=== PATIENT | female | born 1970 | race Caucasian/White ===

== ENCOUNTER 2017-02-08 23:17 | Emergency (ER) | payer OTHER ==
[~2017-02-08] VITALS: Ht 165.1 cm; Wt 119.7 kg
[~2017-02-08 23:17] MED LIST: AMB5 PO; ATV5 PO; CHOL100010 PO; LORA-741 PO; METF1000 PO; NRV5 PO; OMEG10007 PO; OMEP40CA36 PO
[2017-02-08 23:24] VITALS: TEMP 36.5; Ht 165.1 cm; Wt 119.7 kg
[2017-02-08] MEDS ORDERED: SODIUM CHLORIDE 0.9% 1000ML 1,000 ML IV STA ×2 (23:30)
[2017-02-08] MEDS ORDERED: DiphenhydrAMINE HCL 50 MG/ML VIAL IV STA (23:37)
[2017-02-08] MEDS ORDERED: METOCLOPRAMIDE HCL INJ 5 MG/ML 2 ML VIAL IV STA (23:37)
[2017-02-08] MEDS ORDERED: ACETAMINOPHEN 500 MG TAB PO STA (23:37)
[2017-02-08 23:57] LABS: BASO % 0.5 %; BASO ABS # 0.04 K/uL (0-0.2); COMPLETE YES; EOS % 6.5 %; HEMATOCRIT 34.9 % (37-47); IG% 0.3 %; LYMPH ABS # 2.51 K/uL (1.2-3.4); MEAN CELL VOLUME 77.4 fL (80-100); MEAN CORPUSCULAR HEMOGLOBIN 23.9 pg (25-34); MEAN CORPUSCULAR HGB CONC 30.9 g/dl (32-36); MEAN PLATELET VOLUME 10.2 fL (7.4-10.4); MONO % 7.7 %; PLATELET COUNT 313 K/uL (130-400); RED BLOOD COUNT 4.51 M/uL (4.2-5.4); WHITE BLOOD COUNT 7.38 K/uL (4.8-10.8)
[2017-02-09 00:03] LABS: URINE APPEARANCE CLEAR (CLEAR); URINE BILIRUBIN NEG (NEG); URINE COLOR YELLOW; URINE NITRITE NEG (NEG); URINE SPECIFIC GRAVITY 1.012 (1.000-1.030); UROBILINOGEN NEG (NEG); ZZUR CULT IF INDIC CLEAN CATCH NO
[2017-02-09 00:06] LABS: ISTAT CREATININE 0.8 mg/dl (0.6-1.3); ISTAT HEMOGLOBIN 11.9 g/dl (12.0-16.0); ISTAT IONIZED CALCIUM 1.17 mmol/l (1.12-1.32)
[2017-02-09 00:06] LABS: MANUAL MICROSCOPIC REQUIRED? NO; REVIEW REQ? NO
[2017-02-09 00:08] LABS: INR 0.9 (0.9-1.1); PARTIAL THROMBOPLASTIN RATIO 0.9; PROTHROMBIN TIME (PATIENT) 10.1 SECONDS (9.0-12.0)
[2017-02-09 00:14] VITALS: O2SAT 97
[2017-02-09 00:18] LABS: AST/SGOT 18 U/L (15-37); BLOOD UREA NITROGEN 11 mg/dl (7-18); BUN/CREATININE RATIO 13.4 (10-20); CALCIUM 8.8 mg/dl (8.5-10.1); CARBON DIOXIDE 28 mmol/L (21-32); CHLORIDE 105 mmol/L (98-107); GLUCOSE 159 mg/dl (70-99); MAGNESIUM 1.9 mg/dl (1.8-2.4); SODIUM 140 mmol/L (136-145)
[2017-02-09 00:22] LABS: PREG INTERNAL NEGATIVE QC NEG CLEAR BACKGROUND; PREG INTERNAL POSITIVE QC POS CONTROL LINE
[2017-02-09] MEDS ORDERED: PANT40TA PO (00:24)
[2017-02-09] MEDS ORDERED: CHOL1000 PO (00:25)
[2017-02-09 00:29] LABS: ALKALINE PHOSPHATASE 71 U/L (45-117); ALT/SGPT 36 U/L (12-78); CKMB/CK RATIO 0.9 (0-3.0)
[2017-02-09] MEDS ORDERED: DOXYCYCLINE HYCLATE 100 MG CAP PO ONE (01:45)
--- NOTE | 2017-02-09 02:45 | EMERGENCY ROOM VISIT NOTE ---
History First contact with patient: 23:27 Chief Complaint: ED VAG BLEEDING Stated Complaint: VAGINAL BLEEDING,TROUBLE BREATHING History of Present Illness The patient is a 46 year old female who presents to the Emergency Room with complaints of nausea, lightheadedness, dizziness, headache, heavy vaginal bleeding, fatigue and shortness of breath for the past several days that is steadily getting worse. Patient had her menstrual cycle for 3 weeks now[address] She sees Dr. Nuñez and Dr. Roe. She is not seen him in several months. She's had blood transfusions and iron transfusions in the past by Dr. Cardenas. Nothing recently. Patient denies chest pain, fever, chills, cough, congestion, back pain, urinary symptoms. Review of Systems See HPI for pertinent positives & negatives. A total of 10 systems reviewed and were otherwise negative. Past Medical/Surgical History Medical Problems: (1) Chest pain (2) Cholecystectomy (3) CHRONIC LIVER DIS NEC (4) Deliveries by (5) DIAB CRISTIAN WO COMPL, TYPE II OR UNSPEC TYPE, NOT UNCNTRLD (6) DIVERTICULOSIS COLON (W/O MENT OF HEMORRHAGE) (7) ESOPHAGEAL REFLUX (8) HX-VENOUS THROMBOSIS&EMBOLISM (9) HYPERTENSION NOS (10) IRON DEFIC ANEMIA NOS (11) Microcytic anemia (12) POLYCYSTIC OVARIES Social History Smoking Status: Never Smoker Alcohol Use: none Marital Status: Housing Status: lives with family Occupation Status: unemployed Current/Historical Medications Scheduled Cholecalciferol (Vitamin D3), 400 INTERUNIT PO DAILY Fish Oil (Star-3), 1 CAP PO DAILY Metformin Hcl (Glucophage), 1,000 MG PO BID Pantoprazole (Protonix), 40 MG PO DAILY Allergies Coded Allergies: Cinnamon (Verified Allergy, Mild, 02/09/17) Penicillins (Verified Allergy, Mild, Yeast infection, 02/09/17) Physical Exam Vital Signs Date Time Temp Pulse Resp B/P Pulse Ox O2 Delivery O2 Flow Rate FiO2 02/09/17 02:05 68 20 152/90 97 Room Air 02/09/17 00:14 70 16 163/111 99 Room Air 02/09/17 00:14 97 Room Air 02/09/17 00:10 79 02/08/17 23:50 95 Room Air 02/08/17 23:24 36.5 72 21 197/99 98 Room Air Physical Exam VITALS: Vitals are noted on the nurse's note and reviewed by myself. Vital signs hypertensive GENERAL: Pleasant female, in no acute distress, nondiaphoretic, well-developed well-nourished. SKIN: The skin was without rashes, erythema, edema, or bruising. There is no tenting of the skin. Capillary reflex less than 2 seconds. HEAD: Normocephalic atraumatic. EARS: External auditory canals clear, tympanic membranes pearly ortiz without erythema or effusion bilaterally. EYES: Pupils equal round and reactive to light and accommodation. Conjunctivae without injection, sclerae without icterus. Extraocular movements intact. NOSE: Patent, turbinates without inflammation or discharge. Bilateral maxillary sinus tenderness MOUTH: Mucous membranes moist. Pharynx without erythema or exudate. Uvula midline. Airway patent. Tongue does not deviate. NECK: Supple without nuchal rigidity. No lymphadenopathy. No thyromegaly. Cervical spine is nontender. No JVD. HEART: Regular rate and rhythm without murmurs gallops or rubs. LUNGS: Clear to auscultation bilaterally without wheezes, rales or rhonchi. No dullness to percussion. No retractions or accessory muscle use. ABDOMEN: Positive bowel sounds x 4. Normal tympanic percussion. Soft, nontender, without masses or organomegaly. German sign negative. No guarding or rebound tenderness. No CVA tenderness Use exam: Normal external female genitalia, minimal blood in the vault, no CMT tenderness. [employer] present. Os is closed. MUSCULOSKELETAL: No muscle atrophy, erythema, noted. Trace pedal edema bilaterally NEURO: Patient was alert and oriented to person place and time. Normal sensation to light and sharp touch. No focal neurological deficits. Medical Decision & Procedures Laboratory Results 02/08/17 23:35 Red Blood Count 4.51, Mean Corpuscular Volume 77.4, Mean Corpuscular Hemoglobin 23.9, Mean Corpuscular Hemoglobin Concent 30.9, Mean Platelet Volume 10.2, Neutrophils (%) (Auto) 51.0, Lymphocytes (%) (Auto) 34.0, Monocytes (%) (Auto) 7.7, Eosinophils (%) (Auto) 6.5, Basophils (%) (Auto) 0.5, Neutrophils # (Auto) 3.76, Lymphocytes # (Auto) 2.51, Monocytes # (Auto) 0.57, Eosinophils # (Auto) 0.48, Basophils # (Auto) 0.04 02/08/17 23:35 Test 02/08/17 23:35 02/08/17 23:40 02/08/17 23:44 02/08/17 23:51 White Blood Count 7.38 K/uL (4.8-10.8) Red Blood Count 4.51 M/uL (4.2-5.4) Hemoglobin 10.8 g/dL (12.0-16.0) Hematocrit 34.9 % (37-47) Mean Corpuscular Volume 77.4 fL (80-100) Mean Corpuscular Hemoglobin 23.9 pg (25-34) Mean Corpuscular Hemoglobin Concent 30.9 g/dl (32-36) Platelet Count 313 K/uL (130-400) Mean Platelet Volume 10.2 fL (7.4-10.4) Neutrophils (%) (Auto) 51.0 % Lymphocytes (%) (Auto) 34.0 % Monocytes (%) (Auto) 7.7 % Eosinophils (%) (Auto) 6.5 % Basophils (%) (Auto) 0.5 % Neutrophils # (Auto) 3.76 K/uL (1.4-6.5) Lymphocytes # (Auto) 2.51 K/uL (1.2-3.4) Monocytes # (Auto) 0.57 K/uL (0.11-0.59) Eosinophils # (Auto) 0.48 K/uL (0-0.5) Basophils # (Auto) 0.04 K/uL (0-0.2) RDW Standard Deviation 42.5 fL (36.4-46.3) RDW Coefficient of Variation 14.9 % (11.5-14.5) Immature Granulocyte % (Auto) 0.3 % Immature Granulocyte # (Auto) 0.02 K/uL (0.00-0.02) Prothrombin Time 10.1 SECONDS (9.0-12.0) Prothromb Time International Ratio 0.9 (0.9-1.1) Activated Partial Thromboplast Time 24.3 SECONDS (21.0-31.0) Partial Thromboplastin Ratio 0.9 D-Dimer < 190 ug/L FEU (0-500) Est Creatinine Clear Calc Drug Dose 115.1 ml/min Estimated GFR () 103.2 Estimated GFR (Non- 89.0 BUN/Creatinine Ratio 13.4 (10-20) Calcium Level 8.8 mg/dl (8.5-10.1) Magnesium Level 1.9 mg/dl (1.8-2.4) Total Bilirubin 0.2 mg/dl (0.2-1) Direct Bilirubin < 0.1 mg/dl (0-0.2) Aspartate Amino Transf (AST/SGOT) 18 U/L (15-37) Alanine Aminotransferase (ALT/SGPT) 36 U/L (12-78) Alkaline Phosphatase 71 U/L (45-117) Total Creatine Kinase 150 U/L (26-192) Creatine Kinase MB 1.4 ng/ml (0.5-3.6) Creatine Kinase MB Ratio 0.9 (0-3.0) Troponin I < 0.015 ng/ml (0-0.045) Total Protein 8.1 gm/dl (6.4-8.2) Albumin 3.8 gm/dl (3.4-5.0) Thyroid Stimulating Hormone (TSH) 5.280 uIu/ml (0.300-4.500) Human Chorionic Gonadotropin, Qual NEG (NEG) Urine Color YELLOW Urine Appearance CLEAR (CLEAR) Urine pH 7.0 (4.5-7.5) Urine Specific [place] 1.012 (1.000-1.030) Urine Protein NEG (NEG) Urine Glucose (UA) NEG (NEG) Urine Ketones NEG (NEG) Urine Occult Blood 1+ (NEG) Urine Nitrite NEG (NEG) Urine Bilirubin NEG (NEG) Urine Urobilinogen NEG (NEG) Urine Leukocyte Esterase NEG (NEG) Urine WBC (Auto) 0 /hpf (0-5) Urine RBC (Auto) 0-4 /hpf (0-4) Urine Hyaline Casts (Auto) 0 /lpf (0-5) Urine Epithelial Cells (Auto) 5-10 /lpf (0-5) Urine Bacteria (Auto) NEG (NEG) Bedside Troponin I 0.000 ng/ml (0-0.045) Bedside Hemoglobin 11.9 g/dl (12.0-16.0) Bedside Hematocrit 35 % (37-47) Bedside Sodium 140 mEq/L (135-144) Bedside Potassium 3.9 mEq/L (3.3-5.0) Bedside Chloride 101 mEq/L (101-112) Bedside Total CO2 25 mEq/l (24-31) Anion Gap 19.0 mmol/L (16-25) Bedside Blood Urea Nitrogen 11 mg/dl (7-18) Bedside Creatinine 0.8 mg/dl (0.6-1.3) Bedside Glucose (other) 161 mg/dl (70-99) Bedside Ionized Calcium (Noman) 1.17 mmol/l (1.12-1.32) Medications Administered Medications (Trade) Dose Ordered Sig/Soledad Route Start Time Stop Time Status Last Admin Dose Admin Sodium Chloride 1,000 ml @ 125 mls/hr Q8H STAT IV 02/08/17 23:30 02/09/17 07:29 02/09/17 02:03 125 MLS/HR Sodium Chloride (Nss 1000ml) 1,000 ml @ 999 mls/hr Q1H1M STAT IV 02/08/17 23:30 02/09/17 00:30 DC 02/09/17 00:08 999 MLS/HR Acetaminophen (Tylenol Tab) 1,000 mg NOW STAT PO 02/08/17 23:37 02/08/17 23:39 DC 02/09/17 00:09 1,000 MG Metoclopramide HCl (Reglan Inj) 10 mg NOW STAT IV 02/08/17 23:37 02/08/17 23:39 DC 02/09/17 00:10 10 MG Diphenhydramine HCl (Benadryl Inj) 12.5 mg NOW STAT IV 02/08/17 23:37 02/08/17 23:39 DC 02/09/17 00:08 12.5 MG Doxycycline Hyclate (Vibramycin Cap) 100 mg ONE ONCE PO 02/09/17 01:45 02/09/17 01:46 DC 02/09/17 02:05 100 MG ED Course Prior records/ancillary studies reviewed and summarized above. Nursing notes reviewed. Additional history obtained from family. The patient's history was concerning for heavy vaginal bleeding, fatigue, SOB, MAST. Differential diagnosis: Etiologies such as metabolic, anemia, infection, hypo/hyperglycemia, electrolyte abnormalities, cardiac sources, intracerebral event, toxicologic, neurologic, as well as others were entertained. Physical examination: As above. ER treatment provided: IV Lock NSS, APAP, Reglan, Benadryl On reassessment the patient felt better. Diagnostics interpretation by me: ECG: Normal sinus, normal intervals, no acute ST-T wave changes. Impression normal sinus rhythm interpreted by myself The labs revealed mild anemia, no worrisome leukocytosis, negative troponin, negative d-dimer Imaging studies: CT HEAD: Comparison MRI March 2008. No acute intracranial findings. Sinus disease with mucosal retention cyst in the right maxillary sinus. There is also some possible mild fluid/debris in the right maxillary sinus which may represent acute sinusitis. Radiologist: Arjun Calhoun M.D. US PELVIC/ENDOVAG: Retroverted uterus with possible fibroids. Suboptimal visualization of endometrium. Appears heterogenous and thickened with thickness estimated at over 2 cm. Nabothian cysts including complex cyst. Left ovarian cyst measuring 3.8 cm maximum dimension. Blood flow seen to left ovary. Right ovary CXR with no acute consolidation, pneumothorax or free air per my interpretation Exam and history seem consistent with sinusitis and essential uterine bleeding most likely related to fibroids. Patient was neurovascularly and neurologic intact. She is well-appearing. She is advised take medications as directed and to follow-up with her family doctor and OB doctor for further evaluation and workup. She is advised to repeat her pelvic ultrasound in 6 weeks for resolution of cyst. She is advised to return to the ER immediately for heavy bleeding, pain, fevers, neck stiffness, worsening signs or symptoms or as needed. Patient had no signs of meningitis. She is well-appearing. She was not hemorrhaging on exam. She had minimal bleeding on pelvic exam. By the evaluation outlined above emergent etiologies such as electrolyte abnormalities, cardiac sources, intracerebral event, toxologic, neurologic, abnormalities blood glucose, metabolic, as well as others were deemed relatively unlikely. The pt informed about the findings as listed above. All questions were answered and pleased with the treatment. Return instructions were outlined and the patient was discharged in stable condition. Outpatient prescription management: Doxycycline Referral: The patient was referred back to robotic machine operator and primary care physician for follow- up in 2 to 3 days for a recheck of the current condition. Case reviewed with my Attending Medical Decision As above Impression Primary Impression: Acute maxillary sinusitis Additional Impressions: Dysfunctional uterine bleeding Anemia Ovarian cyst Departure Information Dispostion Home / Self-Care Condition GOOD Referrals Pro,Luis F Cm M.D. (PCP) Patient Instructions My [facility] Additional Instructions DO NOT drive, drink alcohol, operate machinery, or perform dangerous activities today. You were given medications in the ER that can affect your ability to safely function or operate a vehicle. Doxycycline 100mg: Take one pill twice daily for 10 days for your infection. Take with food, but avoid dairy. Avoid prolonged sun exposure since this medication makes you temporarily more susceptible to sunburns. All antibiotics can cause diarrhea. If this occurs and you feel worse or it does not resolve in 1-2 days follow up with your doctor or return to the Emergency Department as this could be signs of serious underlying problems. Any medication can cause an allergic reaction, stop the pills immediately and return to the ER for rash, hives, breathing difficulties, or swelling. Acetaminophen(Tylenol) may be used for fever or pain. Use 1000mg every six hours as needed. Avoid using more than 3000mg in a 24 hour period. AND/OR Ibuprofen(Motrin, Advil) may be used for fever or pain. Use 600mg every six hours as needed. Take with food. Avoid using more than 2400mg in a 24 hour period. Do not use 2400mg per day for more than three consecutive days without physician direction. Prolonged inappropriate use can lead to stomach upset or ulcers. Acetaminophen(Tylenol) may be used for fever or pain. Use 1000mg every six hours as needed. Avoid using more than 3000mg in a 24 hour period. (AND/OR) Ibuprofen(Motrin, Advil) may be used for fever or pain. Use 600mg every six hours as needed. Take with food. Avoid using more than 2400mg in a 24 hour period. Do not use 2400mg per day for more than three consecutive days without physician direction. Prolonged inappropriate use can lead to stomach upset or ulcers. Afrin nasal spray: 2-3 sprays to each nostril twice daily as needed for congestion. Do not use for more than 3-4 days because it can lead to worsening rebound congestion. Pseudoephedrine(Sudaphed): 30-60mg every 6 hours as needed for nasal congestion. Do not take this with other stimulant products or supplements. Rest and drink plenty of fluids. Controlling your fever with Tylenol and Ibuprofen as above will make you feel better. Wash your hands after nose blowing, sneezing, or coughing. Most germs are spread through contact, therefore improper hygiene may result in your close contacts and loved ones becoming ill just like you. Continue current medications. Return to the ER for severe headache, neck stiffness, chest pain, difficulty breathing, fevers, vomiting, worsening of your condition, or as needed. Follow up with your primary physician this week for a recheck of your current condition. Repeat pelvic ultrasound in 6 weeks for resolution of cyst. See your HAND EDGER in 2-3 days for further evaluation and workup for your abnormal vaginal bleeding. Problem Qualifiers Primary Impression: Acute maxillary sinusitis Recurrence: not specified as recurrent Qualified Codes: J01.00 - Acute maxillary sinusitis, unspecified
[2017-02-09] MEDS ORDERED: FLUC150T PO (02:48)
[2017-02-09] MEDS ORDERED: DOXY100C2 PO (02:48)
[2017-02-09 03:01] VITALS: BP 145/86; PULSE 87; O2SAT 96
--- NOTE | 2017-02-09 06:29 | DIAGNOSTIC IMAGING REPORT ---
CHEST ONE VIEW PORTABLE CLINICAL HISTORY: CHEST PAIN COMPARISON STUDY: 04/10/2016 FINDINGS: The bones soft tissues and hemidiaphragms are normal. The cardiomediastinal silhouette is normal. The lungs are clear. The pulmonary vasculature is normal. IMPRESSION: Negative chest. Electronically signed by: Sreekanth Ayon M.D. 02/09/2017 6:28 AM Dictated Date/Time: 02/09/2017 6:28 AM
--- NOTE | 2017-02-09 06:36 | DIAGNOSTIC IMAGING REPORT ---
HEAD CT NONCONTRAST CT DOSE: 687.98 mGy.cm HISTORY: Change in mental status MAST/weak/dizzy TECHNIQUE: Multiaxial CT images of the head were performed without the use of intravenous contrast. Comparison: None. Findings: The paranasal sinuses and mastoid air cells are clear. The calvarium and skull base are intact. The ventricles and sulci are within normal limits. There is no mass, hematoma, midline shift, or acute infarct. Impression: No acute intracranial abnormality. note is made of moderate mucosal thickening right maxillary sinus Electronically signed by: Sreekanth Ayon M.D. 02/09/2017 6:34 AM Dictated Date/Time: 02/09/2017 6:33 AM
--- NOTE | 2017-02-09 06:51 | DIAGNOSTIC IMAGING REPORT ---
EXAMINATION: PELVIC ULTRASOUND CLINICAL HISTORY: heavy vag bleed PAIN COMPARISON STUDY: 11/23/2006 FINDINGS: The uterus measured 9.8 cm. Several small uterine fibroids measuring up to 2 cm.. The endometrial stripe measured thickened at 2 cm.. The right ovary measured poorly seen due to overlying bowel content. The left ovary measured 3.8 cm with normal vascular flow. 3 cm cyst.. There is no ultrasonographic evidence of ovarian torsion. It should be noted that ovarian torsion can be present with normal Doppler ultrasonographic findings. There was no evidence of pathologic free pelvic fluid. IMPRESSION: 1. Several small uterine fibroids. 2. Moderate thickening of the endometrium at 2 cm. 3. Left ovarian cyst measuring 3 cm Electronically signed by: Sreekanth Ayon M.D. 02/09/2017 6:49 AM Dictated Date/Time: 02/09/2017 6:46 AM
== END 2017-02-09 03:03 | disposition home or self-care (01) ==
LOC: C.EDB 23:19 → C.EDA 02-09 03:03
DX: J01.90 Acute sinusitis, unspecified (principal); N93.8 Other specified abnormal uterine and vaginal bleeding; D64.9 Anemia, unspecified; N83.209 Unspecified ovarian cyst, unspecified side; E11.9 Type 2 diabetes mellitus without complications; I10 Essential (primary) hypertension; K57.90 Diverticulosis of intestine, part unspecified, without perforation or abscess without bleeding; K21.9 Gastro-esophageal reflux disease without esophagitis; E28.2 Polycystic ovarian syndrome; K76.9 Liver disease, unspecified; Z86.718 Personal history of other venous thrombosis and embolism; Z90.49 Acquired absence of other specified parts of digestive tract; Z88.0 Allergy status to penicillin; Z91.018 Allergy to other foods

== ENCOUNTER 2017-02-23 00:11 | Emergency (ER) | payer OTHER ==
[~2017-02-23] VITALS: Ht 165.1 cm; Wt 119.2 kg
[~2017-02-23 00:11] MED LIST changes: -AMB5 PO; -ATV5 PO; +CHOL1000 PO; -CHOL100010 PO; +DOXY100C2 PO; -LORA-741 PO; -NRV5 PO; -OMEP40CA36 PO; +PANT40TA PO
[2017-02-23 00:13] VITALS: TEMP 36.4; Ht 165.1 cm; Wt 119.2 kg
[2017-02-23] MEDS ORDERED: SODIUM CHLORIDE 0.9% 1000ML 1,000 ML IV STA (00:25)
[2017-02-23] MEDS ORDERED: LIDOCAINE HCL 2% VISC SOLN 20 ML UDC PO STA (00:25)
[2017-02-23] MEDS ORDERED: ALBUT/IPRATROP 3MG/0.5MG NEB 3 ML VIAL INH STA (00:25)
[2017-02-23] MEDS ORDERED: ALUMINUM/MAGNESIUM SUSP 30 ML UDC PO STA (00:25)
[2017-02-23] MEDS ORDERED: SODIUM CHLORIDE 0.9% 500ML 500 ML IV STA (00:25)
[2017-02-23] MEDS ORDERED: DEXAMETHASONE SOD INJ 10 MG/ML VIAL IV ONE (00:30)
[2017-02-23 00:36] VITALS: O2SAT 98
[2017-02-23 00:42] LABS: BASO % 0.4 %; BASO ABS # 0.03 K/uL (0-0.2); COMPLETE YES; EOS % 7.2 %; HEMATOCRIT 33.4 % (37-47); IG% 0.3 %; LYMPH % 29.4 %; LYMPH ABS # 2.26 K/uL (1.2-3.4); MEAN CELL VOLUME 76.8 fL (80-100); MEAN CORPUSCULAR HEMOGLOBIN 23.7 pg (25-34); MEAN CORPUSCULAR HGB CONC 30.8 g/dl (32-36); MEAN PLATELET VOLUME 9.5 fL (7.4-10.4); MONO % 8.3 %; NEUT % 54.4 %; PLATELET COUNT 239 K/uL (130-400); RED BLOOD COUNT 4.35 M/uL (4.2-5.4); WHITE BLOOD COUNT 7.69 K/uL (4.8-10.8)
[2017-02-23 00:54] LABS: POINT OF CARE TROPONIN I 0.02 ng/ml (0-0.045)
[2017-02-23] MEDS ORDERED: [UNRECOGNIZED DRUG - CODE] INJ (00:56)
[2017-02-23 01:00] LABS: ALT/SGPT 29 U/L (12-78); AST/SGOT 13 U/L (15-37); BLOOD UREA NITROGEN 11 mg/dl (7-18); BUN/CREATININE RATIO 13.5 (10-20); CALCIUM 8.7 mg/dl (8.5-10.1); CARBON DIOXIDE 28 mmol/L (21-32); CHLORIDE 107 mmol/L (98-107); GLUCOSE 149 mg/dl (70-99); MAGNESIUM 1.8 mg/dl (1.8-2.4); POTASSIUM 3.8 mmol/L (3.5-5.1); SODIUM 140 mmol/L (136-145)
[2017-02-23 01:05] LABS: ALKALINE PHOSPHATASE 61 U/L (45-117)
[2017-02-23 01:16] LABS: PREG INTERNAL NEGATIVE QC NEG CLEAR BACKGROUND; PREG INTERNAL POSITIVE QC POS CONTROL LINE
[2017-02-23] MEDS ORDERED: RANITIDINE HCL 50 MG/100 ML D5W IV STA (01:18)
[2017-02-23] MEDS ORDERED: DiphenhydrAMINE HCL 50 MG/ML VIAL IV STA (01:18)
[2017-02-23] MEDS ORDERED: ALBUTEROL HFA 8 GM INHALER INH STA (02:56)
[2017-02-23] MEDS ORDERED: DOXYCYCLINE HYCLATE 100 MG CAP PO ONE (03:00)
[2017-02-23] MEDS ORDERED: DOXY100C2 PO (03:16)
[2017-02-23] MEDS ORDERED: PRED50TA PO (03:16)
[2017-02-23 03:35] VITALS: BP 166/88; PULSE 73; O2SAT 95
--- NOTE | 2017-02-23 03:37 | EMERGENCY ROOM VISIT NOTE ---
History First contact with patient: 00:17 Chief Complaint: SHORTNESS OF BREATH Stated Complaint: TROUBLE BREATHING, CHEST PAIN, ALLERGY SYMPTOMS Nursing Triage Summary: Patient reports that she has been short of breath tonight, worse when lying down. Patient notes some heaviness in her chest. Patient has edema to bilateral lower legs, recent travel to [place] in car. History of Present Illness The patient is a 46 year old female who presents to the Emergency Room with complaints of chest pain, difficulty breathing and leg swelling for the past few days who traveled to [place] and back by car. No history DVT or PE. Patient does not smoke. Patient complains of bodyaches. Patient denies abdominal pain, vomiting, diarrhea, headache, neck stiffness. She is tolerate by mouth fluids and food. Review of Systems See HPI for pertinent positives & negatives. A total of 10 systems reviewed and were otherwise negative. Past Medical/Surgical History Medical Problems: (1) Chest pain (2) Cholecystectomy (3) CHRONIC LIVER DIS NEC (4) Deliveries by (5) DIAB CRISTIAN WO COMPL, TYPE II OR UNSPEC TYPE, NOT UNCNTRLD (6) DIVERTICULOSIS COLON (W/O MENT OF HEMORRHAGE) (7) ESOPHAGEAL REFLUX (8) HX-VENOUS THROMBOSIS&EMBOLISM (9) HYPERTENSION NOS (10) IRON DEFIC ANEMIA NOS (11) Microcytic anemia (12) POLYCYSTIC OVARIES Social History Smoking Status: Never Smoker Alcohol Use: none Marital Status: Housing Status: lives with family Occupation Status: unemployed Current/Historical Medications Scheduled Doxycycline Hyclate (Vibramycin), 100 MG PO BID Fish Oil ([place]-3), 1 CAP PO DAILY Iron Dextran (Infed), 1 DOSE INJ DIRECTED Metformin Hcl (Glucophage), 1,000 MG PO BID Pantoprazole (Protonix), 40 MG PO DAILY Prednisone (Prednisone), 50 MG PO DAILY Allergies Coded Allergies: Cinnamon (Verified Allergy, Mild, 02/23/17) Penicillins (Verified Allergy, Mild, Yeast infection, 02/23/17) Physical Exam Vital Signs Date Time Temp Pulse Resp B/P Pulse Ox O2 Delivery O2 Flow Rate FiO2 02/23/17 02:00 71 18 163/101 95 Room Air 02/23/17 00:36 98 Room Air 02/23/17 00:36 98 Room Air 02/23/17 00:13 36.4 75 16 192/106 97 Room Air Physical Exam PHYSICAL EXAM: Vital Signs: Reviewed Nurse's notes. Oxygen saturation was 97% on room air. Hypertensive GENERAL: Pleasant female, Alert, oriented and coherent. The patient is able to speak in complete sentences. NECK: Supple, non -tender. CHEST: Symmetrical expansion. no retractions no accessory muscle use. HEART: Regular rate and normal heart sounds, no murmur, gallop or rub. LUNGS: Breath sounds equal but significantly diminished in intensity on both sides. Bilateral wheezes heard but no rales or pleuritic rub. SKIN: The skin was without rashes, erythema, edema, or bruising. There is no tenting of the skin. Capillary reflex less than 2 seconds. HEAD: Normocephalic atraumatic. EARS: External auditory canals clear, tympanic membranes pearly ortiz without erythema or effusion bilaterally. EYES: Pupils equal round and reactive to light and accommodation. Conjunctivae without injection, sclerae without icterus. Extraocular movements intact. NOSE: Patent, turbinates without inflammation or discharge. No sinus tenderness. MOUTH: Mucous membranes moist. Tonsils are not enlarged. Pharynx without erythema or exudate. Uvula midline. Airway patent. Tongue does not deviate. ABDOMEN: Positive bowel sounds x 4. Normal tympanic percussion. Soft, nontender, without masses or organomegaly. German sign negative. No guarding or rebound tenderness. MUSCULOSKELETAL: No muscle atrophy, erythema, noted. + Pitting edema up to the mid tib-fib bilaterally NEURO: Patient was alert and oriented to person place and time. Normal sensation to light and sharp touch. No focal neurological deficits. Medical Decision & Procedures Laboratory Results 02/23/17 00:31 Red Blood Count 4.35, Mean Corpuscular Volume 76.8, Mean Corpuscular Hemoglobin 23.7, Mean Corpuscular Hemoglobin Concent 30.8, Mean Platelet Volume 9.5, Neutrophils (%) (Auto) 54.4, Lymphocytes (%) (Auto) 29.4, Monocytes (%) (Auto) 8.3, Eosinophils (%) (Auto) 7.2, Basophils (%) (Auto) 0.4, Neutrophils # (Auto) 4.19, Lymphocytes # (Auto) 2.26, Monocytes # (Auto) 0.64, Eosinophils # (Auto) 0.55, Basophils # (Auto) 0.03 02/23/17 00:31 Test 02/23/17 00:31 02/23/17 00:35 02/23/17 02:37 White Blood Count 7.69 K/uL (4.8-10.8) Red Blood Count 4.35 M/uL (4.2-5.4) Hemoglobin 10.3 g/dL (12.0-16.0) Hematocrit 33.4 % (37-47) Mean Corpuscular Volume 76.8 fL (80-100) Mean Corpuscular Hemoglobin 23.7 pg (25-34) Mean Corpuscular Hemoglobin Concent 30.8 g/dl (32-36) Platelet Count 239 K/uL (130-400) Mean Platelet Volume 9.5 fL (7.4-10.4) Neutrophils (%) (Auto) 54.4 % Lymphocytes (%) (Auto) 29.4 % Monocytes (%) (Auto) 8.3 % Eosinophils (%) (Auto) 7.2 % Basophils (%) (Auto) 0.4 % Neutrophils # (Auto) 4.19 K/uL (1.4-6.5) Lymphocytes # (Auto) 2.26 K/uL (1.2-3.4) Monocytes # (Auto) 0.64 K/uL (0.11-0.59) Eosinophils # (Auto) 0.55 K/uL (0-0.5) Basophils # (Auto) 0.03 K/uL (0-0.2) RDW Standard Deviation 41.8 fL (36.4-46.3) RDW Coefficient of Variation 14.6 % (11.5-14.5) Immature Granulocyte % (Auto) 0.3 % Immature Granulocyte # (Auto) 0.02 K/uL (0.00-0.02) Anion Gap 5.0 mmol/L (3-11) Est Creatinine Clear Calc Drug Dose 114.8 ml/min Estimated GFR () 103.2 Estimated GFR (Non- 89.0 BUN/Creatinine Ratio 13.5 (10-20) Calcium Level 8.7 mg/dl (8.5-10.1) Magnesium Level 1.8 mg/dl (1.8-2.4) Total Bilirubin 0.3 mg/dl (0.2-1) Direct Bilirubin < 0.1 mg/dl (0-0.2) Aspartate Amino Transf (AST/SGOT) 13 U/L (15-37) Alanine Aminotransferase (ALT/SGPT) 29 U/L (12-78) Alkaline Phosphatase 61 U/L (45-117) Troponin I < 0.015 ng/ml (0-0.045) Total Protein 7.5 gm/dl (6.4-8.2) Albumin 3.6 gm/dl (3.4-5.0) Lipase 211 U/L (73-393) Human Chorionic Gonadotropin, Qual NEG (NEG) Bedside D-Dimer 109 ng/mlFEU (0-450) Bedside Troponin I 0.000 ng/ml (0-0.045) Medications Administered Medications (Trade) Dose Ordered Sig/Soledad Route Start Time Stop Time Status Last Admin Dose Admin Dexamethasone Sodium Phosphate (Decadron Inj) 10 mg NOW ONCE IV 02/23/17 00:30 02/23/17 00:31 DC 02/23/17 00:49 10 MG Albuterol/ Ipratropium 3 ml 3 ml NOW STAT INH 02/23/17 00:25 02/23/17 00:28 DC 02/23/17 00:49 3 ML Sodium Chloride 500 ml @ 999 mls/hr Q31M STAT IV 02/23/17 00:25 02/23/17 00:55 DC 02/23/17 00:25 999 MLS/HR Sodium Chloride (Nss 1000ml) 1,000 ml @ 125 mls/hr Q8H STAT IV 02/23/17 00:25 02/23/17 08:24 02/23/17 00:25 125 MLS/HR Lidocaine HCl (Viscous Lidocaine 2% Soln) 10 ml NOW STAT PO 02/23/17 00:25 02/23/17 00:28 DC 02/23/17 00:49 10 ML Al Hydroxide/Mg Hydroxide (Maalox Susp) 30 ml NOW STAT PO 02/23/17 00:25 02/23/17 00:28 DC 02/23/17 00:49 30 ML Ranitidine HCl (zANTac IV) 50 mg NOW STAT IV 02/23/17 01:18 02/23/17 01:20 DC 02/23/17 01:41 50 MG Diphenhydramine HCl (Benadryl Inj) 50 mg NOW STAT IV 02/23/17 01:18 02/23/17 01:20 DC 02/23/17 01:41 50 MG Doxycycline Hyclate (Vibramycin Cap) 100 mg ONE ONCE PO 02/23/17 03:00 02/23/17 03:01 DC 02/23/17 03:00 100 MG Albuterol (Ventolin Hfa Inhaler) 2 puffs ONE STAT INH 02/23/17 02:56 02/23/17 02:57 DC 02/23/17 02:56 2 PUFFS ED Course Prior records/ancillary studies reviewed. Triage Nursing notes reviewed. Additional history obtained from family. The patient's history was concerning for chest pain. Differential diagnosis: Etiologies such as cardiac ischemia, aortic dissection, pulmonary embolism, pneumonia, pneumothorax, musculoskeletal, infections, pericarditis, myocarditis , esophageal rupture, gastrointestinal, as well as others were entertained. Physical examination: As above. ER treatment provided: Nebulizer, steroids, doxy On reassessment the patient felt better. Diagnostic interpretation by me: The electrocardiogram was negative for pathologic change. Normal sinus, normal intervals, no acute ST-T wave changes. Impression normal sinus rhythm interpreted by myself The labs revealed negative d-dimer. Negative troponin 2 that is 2 hours apart Imaging studies: Chest x-ray with no acute consolidation, pneumothorax or free air per my interpretation Ultrasound negative for DVT per stat radiology Exam and history seem consistent with chest pain and short of breath most likely from bronchitis with wheezing. Patient felt much better to be medicated as above. Patient still some sinus congestion and states she normally needs antibiotics for her bronchitis. Patient is advised take medications as directed and to follow-up family care in a few days. She is advised to wear the LOAN hose. She is advised to return to the ER immediately for chest pain, difficulty breathing, worsening signs or symptoms or as needed. Patient had a normal EKG with 2 troponins that were negative there were 2 hours apart. By the evaluation outlined above emergent etiologies such as cardiac ischemia, aortic dissection, pulmonary embolism, pneumonia, pneumothorax, infections, pericarditis, myocarditis, gastrointestinal, as well as others were deemed relatively unlikely. The pt informed about the findings as listed above. All questions were answered and pleased with the treatment. Return instructions were outlined and the patient was discharged in stable condition. Outpatient prescription management: Doxycycline, prednisone Referral: The patient was referred back to primary care physician for follow-up in 2 to 3 days for a recheck of the current condition. Case reviewed with my attending Medical Decision As above Impression Primary Impression: Chest pain Additional Impressions: Wheezing Bronchitis Departure Information Dispostion Home / Self-Care Condition GOOD Prescriptions Doxycycline Hyclate (VIBRAMYCIN) 100 Mg Cap 100 MG PO BID for 7 Days, #14 CAP Prov: Alix Troy PA-C 02/23/17 Prednisone (Prednisone) 50 Mg Tab 50 MG PO DAILY for 4 Days, #4 TAB Prov: Alix Troy PA-C 02/23/17 Forms HOME CARE DOCUMENTATION FORM, IMPORTANT VISIT INFORMATION Patient Instructions Bronchitis Acute, My [facility] Additional Instructions Prednisone 50mg: Once daily until the prescription is finished. It is best to take this earlier in the day as some patients note occasional difficulty falling asleep when taken in the late evening. Doxycycline 100mg: Take one pill twice daily for seven days for your infection. Take with food, but avoid dairy. Avoid prolonged sun exposure since this medication makes you temporarily more susceptible to sunburns. All antibiotics can cause diarrhea. If this occurs and you feel worse or it does not resolve in 1-2 days follow up with your doctor or return to the Emergency Department as this could be signs of serious underlying problems. Any medication can cause an allergic reaction, stop the pills immediately and return to the ER for rash, hives, breathing difficulties, or swelling. Albuterol Inhaler: Take 2 puffs four times daily for seven days, then as needed. Acetaminophen(Tylenol) may be used for fever or pain. Use 1000mg every six hours as needed. Avoid using more than 3000mg in a 24 hour period. AND/OR Ibuprofen(Motrin, Advil) may be used for fever or pain. Use 600mg every six hours as needed. Take with food. Avoid using more than 2400mg in a 24 hour period. Do not use 2400mg per day for more than three consecutive days without physician direction. Prolonged inappropriate use can lead to stomach upset or ulcers. Controlling your fever with Tylenol and Ibuprofen as above will make you feel better. Rest and drink plenty of fluids. Avoid strenuous activity until your symptoms resolve and your breathing returns to normal. Continue current medications. Return to the ER for chest pain, difficulty breathing, persistent fevers, vomiting, worsening of your condition, or as needed. Follow-up with family care in 2-3 days. Problem Qualifiers Primary Impression: Chest pain Chest pain type: chest pain on breathing Qualified Codes: R07.1 - Chest pain on breathing
--- NOTE | 2017-02-23 06:44 | DIAGNOSTIC IMAGING REPORT ---
BILATERAL LOWER EXTREMITY VENOUS DOPPLER CLINICAL HISTORY: Leg swelling. Recent travel. COMPARISON STUDY: No previous studies for comparison. TECHNIQUE: Sonography of the deep venous system of the bilateral lower extremities was performed. Compression and augmentation were evaluated. FINDINGS: The bilateral common femoral, superficial femoral and popliteal veins were compressible. Augmentation was normal. Flow was shown within the deep calf vessels. IMPRESSION: No evidence of deep venous thrombus within the bilateral lower extremities. Electronically signed by: Virgilio Lee M.D. 02/23/2017 6:43 AM Dictated Date/Time: 02/23/2017 6:42 AM
--- NOTE | 2017-02-23 06:45 | DIAGNOSTIC IMAGING REPORT ---
CHEST ONE VIEW PORTABLE CLINICAL HISTORY: Chest pain shortness of breath. COMPARISON STUDY: Chest radiograph February 08, 2017. FINDINGS: Lung volumes are mildly diminished. This is unchanged. No pneumothorax or pleural effusion is present. There is no consolidation to suggest pneumonia. There is no evidence of pulmonary edema. Borderline cardiomegaly is unchanged. IMPRESSION: No acute cardiopulmonary findings. Electronically signed by: Virgilio Lee M.D. 02/23/2017 6:43 AM Dictated Date/Time: 02/23/2017 6:43 AM
== END 2017-02-23 03:36 | disposition home or self-care (01) ==
LOC: C.EDB 00:13
DX: R07.1 Chest pain on breathing (principal); R06.2 Wheezing; J40 Bronchitis, not specified as acute or chronic; K76.9 Liver disease, unspecified; E11.9 Type 2 diabetes mellitus without complications; K21.9 Gastro-esophageal reflux disease without esophagitis; Z86.718 Personal history of other venous thrombosis and embolism; D50.9 Iron deficiency anemia, unspecified; E28.2 Polycystic ovarian syndrome; Z79.899 Other long term (current) drug therapy

== ENCOUNTER → 2017-02-28 | Outpatient (CLI) | payer OTHER ==
[~2017-02-28] MED LIST changes: -CHOL1000 PO; +CINN1CAP2 PO; +PRED50TA PO; +[UNRECOGNIZED DRUG - CODE] INJ
== END | disposition home or self-care (01) ==
LOC: C.PATHSPEC 10:44
PROVIDERS: ATTEND Obstetrics & Gynecology
DX: D25.9 Leiomyoma of uterus, unspecified (principal)

== ENCOUNTER → 2017-03-11 | Outpatient (CLI) | payer OTHER ==
[~2017-03-11] MED LIST changes: -PRED50TA PO
[2017-03-11 13:24] LABS: BASO % 0.3 %; BASO ABS # 0.02 K/uL (0-0.2); COMPLETE YES; EOS % 3.3 %; HEMATOCRIT 31.5 % (37-47); IG% 0.2 %; LYMPH % 24.3 %; LYMPH ABS # 1.57 K/uL (1.2-3.4); MEAN CELL VOLUME 76.3 fL (80-100); MEAN CORPUSCULAR HEMOGLOBIN 23.7 pg (25-34); MEAN CORPUSCULAR HGB CONC 31.1 g/dl (32-36); MEAN PLATELET VOLUME 10.3 fL (7.4-10.4); MONO % 7.4 %; NEUT % 64.5 %; PLATELET COUNT 274 K/uL (130-400); RED BLOOD COUNT 4.13 M/uL (4.2-5.4); WHITE BLOOD COUNT 6.46 K/uL (4.8-10.8)
[2017-03-11 13:49] LABS: ESTIMATED AVERAGE GLUCOSE 180 mg/dl; HA1C FLAG Normal (Normal)
[2017-03-11 14:32] LABS: ALT/SGPT 34 U/L (12-78); BLOOD UREA NITROGEN 10 mg/dl (7-18); CARBON DIOXIDE 21 mmol/L (21-32); CHLORIDE 110 mmol/L (98-107); GLUCOSE 180 mg/dl (70-99); SODIUM 141 mmol/L (136-145)
[2017-03-11 14:37] LABS: ALB/GLOB RATIO 0.8 (0.9-2); ALKALINE PHOSPHATASE 40 U/L (45-117); AST/SGOT 15 U/L (15-37); FERRITIN 4.5 ng/ml (8.0-388.0)
[2017-03-11 18:28] LABS: CALCIUM 8.9 mg/dl (8.5-10.1)
== END | disposition home or self-care (01) ==
LOC: C.LAB1850 11:53
PROVIDERS: ATTEND Internal Medicine
DX: R42 Dizziness and giddiness (principal); D50.9 Iron deficiency anemia, unspecified; E11.9 Type 2 diabetes mellitus without complications

== ENCOUNTER 2017-03-12 20:41 | Emergency (ER) | payer OTHER ==
[~2017-03-12] VITALS: Ht 165.1 cm; Wt 121.2 kg
[~2017-03-12 20:41] MED LIST changes: -CINN1CAP2 PO
[2017-03-12 20:45] VITALS: TEMP 36.7; Ht 165.1 cm; Wt 121.2 kg
[2017-03-12] MEDS ORDERED: SODIUM CHLORIDE 0.9% 1000ML 1,000 ML IV ONE (21:16)
[2017-03-12] MEDS ORDERED: SODIUM CHLORIDE 0.9% 1000ML 1,000 ML IV STA (21:16)
--- NOTE | 2017-03-12 21:30 | EMERGENCY ROOM VISIT NOTE ---
History Report prepared by Boris: Augusto Gillis Under the Supervision of: Dr. John Marte M.D. First contact with patient: 21:00 Chief Complaint: ED VAG BLEEDING Stated Complaint: VAGINAL BLEEDING,PAIN History of Present Illness The patient is a 46 year old female who presents to the Emergency Room with complaints of worsening vaginal bleeding beginning last night. She currently rates her discomfort a 7/10 in severity. The patient reports that she was experiencing vaginal bleeding 8 weeks ago, and she went to see her [facility] doctor. She states that at her appointment she had an ultrasound done, and it showed fibroids and a right ovarian cyst. The patient notes that she was given hormone pills and antibiotics for her findings, and she just finished her antibiotics three days ago. She reports that her bleeding began again last night , and it worsened today. The patient notes that she is anemic, and her weakness feels like she has an iron deficiency. She states that her bleeding has a Jell- O like consistency, and she has gone through numerous pads today. She denies being . The patient reports that she has had four pregnancies, and she has four living children. Source of History: patient, spouse/significant other Onset: last night Position: other (vagina) Symptom Intensity: 7/10 Quality: other (bleeding) Timing: worsening Associated Symptoms: + weakness Review of Systems See HPI for pertinent positives & negatives. A total of 10 systems reviewed and were otherwise negative. Past Medical & Surgical Medical Problems: (1) Chest pain (2) Cholecystectomy (3) CHRONIC LIVER DIS NEC (4) Deliveries by (5) DIAB CRISTIAN WO COMPL, TYPE II OR UNSPEC TYPE, NOT UNCNTRLD (6) DIVERTICULOSIS COLON (W/O MENT OF HEMORRHAGE) (7) ESOPHAGEAL REFLUX (8) HX-VENOUS THROMBOSIS&EMBOLISM (9) HYPERTENSION NOS (10) IRON DEFIC ANEMIA NOS (11) Microcytic anemia (12) POLYCYSTIC OVARIES Old medical records were reviewed. Nurse's notes were reviewed and I agree with. Family History Patient reports no known family medical history. Social History Smoking Status: Never Smoker Alcohol Use: none Marital Status: Housing Status: lives with family Occupation Status: unemployed Current/Historical Medications Scheduled Cinnamon (Cinnamon), 500 MG PO DAILY Fish Oil ([place]-3), 1,200 MG PO DAILY Iron Dextran (Infed), 1 DOSE INJ DIRECTED Metformin Hcl (Glucophage), 1,000 MG PO BID Pantoprazole (Protonix), 40 MG PO DAILY Allergies Coded Allergies: Cinnamon (Verified Allergy, Mild, 02/23/17) Penicillins (Verified Allergy, Mild, Yeast infection, 02/23/17) Physical Exam Vital Signs Date Time Temp Pulse Resp B/P (MAP) Pulse Ox O2 Delivery O2 Flow Rate FiO2 03/13/17 00:11 70 18 171/96 97 03/12/17 20:45 36.7 84 18 184/105 98 Room Air Physical Exam General: Well developed well nourished in no acute distress, breathing comfortably on room air. Normal speech, non-ill appearing, middle-aged female HEENT: Normal cephalic atraumatic. Pupils are equal round and reactive to light. Extraocular movements are intact. Oropharynx is pink with moist mucous membranes. No swelling of the mouth lips or tongue. Neck: Supple with a midline trachea. No meningeal signs or stiffness, no JVD or bruits. No Stridor. Chest: Clear to auscultation bilaterally. No wheezes or rhonchi. No increased work of breathing. Heart: regular rate and rhythm. Abdomen: Soft, nondistended without rebound guarding or rigidity. Mild suprapubic tenderness to palpation Extremities: No cyanosis clubbing or edema. No calf tenderness or assymetry Spine/Back. Non tender to palpation. No CVA tenderness Skin: Good turgor without rashes. Neurologic exam: Cranial nerves two through 12 are intact. Motor and sensation are intact and symmetrical throughout. Pelvic (performed in the presence of a female nurse trade recruiter): Moderate blood clots that were obscuring the cervix, they were removed, mild bleeding. Medical Decision & Procedures Laboratory Results 03/12/17 21:27 Red Blood Count 4.24, Mean Corpuscular Volume 75.5, Mean Corpuscular Hemoglobin 23.6, Mean Corpuscular Hemoglobin Concent 31.3, Mean Platelet Volume 9.6, Neutrophils (%) (Auto) 66.5, Lymphocytes (%) (Auto) 21.8, Monocytes (%) (Auto) 7.8, Eosinophils (%) (Auto) 3.5, Basophils (%) (Auto) 0.3, Neutrophils # (Auto) 4.93, Lymphocytes # (Auto) 1.62, Monocytes # (Auto) 0.58, Eosinophils # (Auto) 0.26, Basophils # (Auto) 0.02 03/12/17 21:27 Test 03/12/17 21:27 White Blood Count 7.42 K/uL (4.8-10.8) Red Blood Count 4.24 M/uL (4.2-5.4) Hemoglobin 10.0 g/dL (12.0-16.0) Hematocrit 32.0 % (37-47) Mean Corpuscular Volume 75.5 fL (80-100) Mean Corpuscular Hemoglobin 23.6 pg (25-34) Mean Corpuscular Hemoglobin Concent 31.3 g/dl (32-36) Platelet Count 291 K/uL (130-400) Mean Platelet Volume 9.6 fL (7.4-10.4) Neutrophils (%) (Auto) 66.5 % Lymphocytes (%) (Auto) 21.8 % Monocytes (%) (Auto) 7.8 % Eosinophils (%) (Auto) 3.5 % Basophils (%) (Auto) 0.3 % Neutrophils # (Auto) 4.93 K/uL (1.4-6.5) Lymphocytes # (Auto) 1.62 K/uL (1.2-3.4) Monocytes # (Auto) 0.58 K/uL (0.11-0.59) Eosinophils # (Auto) 0.26 K/uL (0-0.5) Basophils # (Auto) 0.02 K/uL (0-0.2) RDW Standard Deviation 42.9 fL (36.4-46.3) RDW Coefficient of Variation 15.4 % (11.5-14.5) Immature Granulocyte % (Auto) 0.1 % Immature Granulocyte # (Auto) 0.01 K/uL (0.00-0.02) Anion Gap 12.0 mmol/L (3-11) Est Creatinine Clear Calc Drug Dose 94.6 ml/min Estimated GFR () 80.7 Estimated GFR (Non- 69.7 BUN/Creatinine Ratio 13.5 (10-20) Calcium Level 8.9 mg/dl (8.5-10.1) Total Bilirubin 0.3 mg/dl (0.2-1) Direct Bilirubin < 0.1 mg/dl (0-0.2) Aspartate Amino Transf (AST/SGOT) 17 U/L (15-37) Alanine Aminotransferase (ALT/SGPT) 38 U/L (12-78) Alkaline Phosphatase 48 U/L (45-117) Total Protein 7.7 gm/dl (6.4-8.2) Albumin 3.6 gm/dl (3.4-5.0) Lipase 217 U/L (73-393) Human Chorionic Gonadotropin, Qual NEG (NEG) Laboratory studies as stated above per my review. Medications Administered Medications (Trade) Dose Ordered Sig/[place] Route Start Time Stop Time Status Last Admin Dose Admin Sodium Chloride 1,000 ml @ 999 mls/hr Q1H1M STAT IV 03/12/17 21:16 03/12/17 22:16 DC 03/12/17 21:32 999 MLS/HR Sodium Chloride 1,000 ml @ 150 mls/hr Q6H40M ONCE IV 03/12/17 21:16 03/13/17 00:36 DC 03/12/17 21:16 150 MLS/HR Norethindrone Acetate (Aygestin Tab) 5 mg ONE STAT PO 03/12/17 23:41 03/12/17 23:42 DC 03/13/17 00:07 5 MG ED Course 2108: Past medical records reviewed. The patient was evaluated in room C05, and a complete history and physical examination were performed. 2253: I preformed a pelvic exam in the presence of a female nurse trade recruiter. Please refer to the physical exam for a more detailed report. 2325: I discussed the patients case with Dr. Nair, [facility]. She thinks it is progesterone withdrawal. She advised me to start her on progesterone. 2340: Upon reevaluation, the patient is resting and in no distress. I discussed the results and treatment plan with her. She verbalized agreement of the treatment plan. The patient was discharged home. Medical Decision Differential diagnosis includes: anemia, vaginal bleeding, , electrolyte metabolic abnormality, infection Medication Reconciliation: I attest that I have personally reviewed the patient' s current medication list. Blood pressure Screening: Patient was found to have an elevated blood pressure and was referred to their primary doctor for recheck and further treatment. This patient comes in as described above. She was placed in room C5. She's had vaginal bleeding after stopping her progesterone. She's had vaginal bleeding for 8 weeks and got better when she was on the progesterone. She does have a history of baseline anemia. Hemoglobin yesterday was 9.8 today was 10.0. She's been hemin and stable. She has had a moderate amount of clots on exam. Her abdomen is benign otherwise and she looks well. She's had no acute electrolyte or metabolic abnormalities. She is not . She has nothing to suggest infection at this point. I did discuss the case with Dr. Mustafa, the on-call [facility] [facility], she recommended restarting her Aygestin taper 5 mg 4 times a day for 4 days then 5 mg 3 times a day for 4 days, then 2 times a day for 4 days, and then one time a day for 4 days. I gave her the first dose here and a prescription to go home with. I recommend that she follow up with her [facility] [facility] [facility] on Tuesday or Tuesday if not better. they have done an endometrial biopsy and are scheduling further testing and she may ultimately need either a D&C or other surgical intervention if her bleeding persists long-term. Dr. Mustafa felt she was stable to home and they can follow up with her in the office the patient was happy with the plan and was discharged home encourage her return if symptoms worsen. Consults Time Called: [phone] Consulting Physician: Dr. Nair [facility] Returned Call: [phone] I discussed the patients case with Dr. Nair, [facility]. She thinks it is progesterone withdrawal. She advised me to start her on progesterone. Impression Primary Impression: Vaginal bleeding Scribe Attestation The scribe's documentation has been prepared under my direction and personally reviewed by me in its entirety. I confirm that the note above accurately reflects all work, treatment, procedures, and medical decision making performed by me. Departure Information Dispostion Home / Self-Care Referrals Luis F Sanders M.D. (PCP) Forms HOME CARE DOCUMENTATION FORM, IMPORTANT VISIT INFORMATION, WORK / SCHOOL INSTRUCTIONS Patient Instructions My [facility] Additional Instructions Rest. Drink plenty of fluids. Use Aygestin(Norethindrone) 5 mg taper as directed Take one pill 4 times a day for 4 days then Take one pill 3 times a day for 4 days then Take one pill 2 times a day for 4 days Then take one pill 1 time a day for 4 days Follow-up with [facility] on Tuesday if your bleeding is not getting better or return to the ER over the weekend if: increasing bleeding or worsening of symptoms, lightheadedness or dizziness or any new problems or concerns.
[2017-03-12 21:41] LABS: BASO % 0.3 %; BASO ABS # 0.02 K/uL (0-0.2); COMPLETE YES; EOS % 3.5 %; IG% 0.1 %; LYMPH % 21.8 %; LYMPH ABS # 1.62 K/uL (1.2-3.4); MEAN CELL VOLUME 75.5 fL (80-100); MEAN CORPUSCULAR HEMOGLOBIN 23.6 pg (25-34); MEAN CORPUSCULAR HGB CONC 31.3 g/dl (32-36); MEAN PLATELET VOLUME 9.6 fL (7.4-10.4); MONO % 7.8 %; NEUT % 66.5 %; PLATELET COUNT 291 K/uL (130-400); RED BLOOD COUNT 4.24 M/uL (4.2-5.4); WHITE BLOOD COUNT 7.42 K/uL (4.8-10.8)
[2017-03-12 21:58] LABS: ALT/SGPT 38 U/L (12-78); BLOOD UREA NITROGEN 13 mg/dl (7-18); BUN/CREATININE RATIO 13.5 (10-20); CARBON DIOXIDE 21 mmol/L (21-32); CHLORIDE 106 mmol/L (98-107); CREATININE 0.98 mg/dl (0.60-1.20); GLUCOSE 199 mg/dl (70-99); POTASSIUM 4.1 mmol/L (3.5-5.1); SODIUM 139 mmol/L (136-145)
[2017-03-12 22:01] LABS: ALKALINE PHOSPHATASE 48 U/L (45-117); AST/SGOT 17 U/L (15-37)
[2017-03-12] MEDS ORDERED: CINN1CAP2 PO (22:03)
[2017-03-12 22:05] LABS: PREG INTERNAL NEGATIVE QC NEG CLEAR BACKGROUND; PREG INTERNAL POSITIVE QC POS CONTROL LINE
[2017-03-12 22:17] LABS: CALCIUM 8.9 mg/dl (8.5-10.1)
[2017-03-12] MEDS ORDERED: NORETHINDRONE ACETATE 5 MG TAB PO STA (23:41)
[2017-03-13 00:11] VITALS: BP 171/96; PULSE 70; O2SAT 97
== END 2017-03-13 00:12 | disposition home or self-care (01) ==
LOC: C.EDB 20:43 → C.EDC 03-13 00:12
DX: N93.9 Abnormal uterine and vaginal bleeding, unspecified (principal); K76.9 Liver disease, unspecified; E11.9 Type 2 diabetes mellitus without complications; K57.90 Diverticulosis of intestine, part unspecified, without perforation or abscess without bleeding; K21.9 Gastro-esophageal reflux disease without esophagitis; I10 Essential (primary) hypertension; E28.2 Polycystic ovarian syndrome

== ENCOUNTER → 2017-06-06 | Outpatient (CLI) | payer OTHER ==
[~2017-06-06] MED LIST changes: +CINN1CAP2 PO; -DOXY100C2 PO
[2017-06-06 16:50] LABS: URINE APPEARANCE CLEAR (CLEAR); URINE COLOR DK YELLOW; URINE EPITHELIAL CELL AUTO >30 /lpf (0-5); URINE NITRITE NEG (NEG); UROBILINOGEN NEG (NEG)
[2017-06-06 16:58] LABS: MANUAL MICROSCOPIC REQUIRED? NO; REVIEW REQ? NO
[2017-06-06 16:59] LABS: URINE BILIRUBIN NEG (NEG)
[2017-06-06 17:09] LABS: BLOOD UREA NITROGEN 12 mg/dl (7-18); CALCIUM 8.9 mg/dl (8.5-10.1); CARBON DIOXIDE 27 mmol/L (21-32); CHLORIDE 105 mmol/L (98-107); CREATININE 0.78 mg/dl (0.60-1.20); GLUCOSE 137 mg/dl (70-99); POTASSIUM 3.9 mmol/L (3.5-5.1); SODIUM 138 mmol/L (136-145)
[2017-06-06 17:20] LABS: CHOLESTEROL 151 mg/dl (0-200); CHOLESTEROL/HDL RATIO 3.5; FERRITIN 6.9 ng/ml (8.0-388.0); HDL CHOLESTEROL 43 mg/dl; LDL CHOLESTEROL CALCULATED 91 mg/dl; TRIGLYCERIDES 84 mg/dl (0-150); VERY LOW DENSITY LIPOPROT CALC 17 mg/dl
[2017-06-06 17:23] LABS: RATIO 12.7 mcg/mg (0-30.0)
[2017-06-06 17:35] LABS: MEAN CELL VOLUME 63.7 fL (80-100); MEAN CORPUSCULAR HEMOGLOBIN 17.7 pg (25-34); MEAN CORPUSCULAR HGB CONC 27.8 g/dl (32-36); MEAN PLATELET VOLUME 9.7 fL (7.4-10.4); PLATELET COUNT 303 K/uL (130-400); RED BLOOD COUNT 4.24 M/uL (4.2-5.4); WHITE BLOOD COUNT 7.34 K/uL (4.8-10.8)
[2017-06-06 17:36] LABS: BASO % 0.7 %; BASO ABS # 0.05 K/uL (0-0.2); COMPLETE YES; EOS % 3.8 %; HYPOCHROMIA PRESENT; IG% 0.3 %; LYMPH % 23.3 %; LYMPH ABS # 1.71 K/uL (1.2-3.4); MICROCYTOSIS PRESENT; MONO % 8.2 %; NEUT % 63.7 %
[2017-06-07 06:34] LABS: ESTIMATED AVERAGE GLUCOSE 174 mg/dl; HA1C FLAG Normal (Normal)
== END | disposition home or self-care (01) ==
LOC: C.LAB1850 15:18
PROVIDERS: ATTEND Internal Medicine
DX: D50.9 Iron deficiency anemia, unspecified (principal); E11.9 Type 2 diabetes mellitus without complications; E55.9 Vitamin D deficiency, unspecified; I10 Essential (primary) hypertension; N39.3 Stress incontinence (female) (male)

== ENCOUNTER 2017-07-15 06:07 | Day surgery (SDC) | payer OTHER ==
[2017-06-30 14:03] VITALS: BMI 43.0
--- NOTE | 2017-06-30 14:51 | PAT Medication Instructions ---
Service Date Jun 30, 2017. Current Home Medication List Cinnamon (Cinnamon), 500 MG PO BID Fish Oil (Dana-3), 1,200 MG PO QAM Iron Dextran (Infed), 1 DOSE INJ DIRECTED Metformin Hcl (Glucophage), 1,000 MG PO BID Pantoprazole (Protonix), 40 MG PO QAM Medication Instructions For Your Scheduled Surgery -Continue as directed: Iron Dextran (Infed), 1 DOSE INJ DIRECTED - Hold the following medications 2 weeks prior to surgery: Cinnamon (Cinnamon), 500 MG PO BID Fish Oil (Dana-3), 1,200 MG PO QAM - Hold the following medications 48 hours prior to surgery: Metformin Hcl (Glucophage), 1,000 MG PO BID - Take the following medications the morning of surgery with a sip of water: Pantoprazole (Protonix), 40 MG PO QAM If you have any questions please call us at [phone] or [phone] or [phone]
[2017-06-30 16:18] LABS: HEMATOCRIT 33.6 % (37-47); MEAN CELL VOLUME 69.9 fL (80-100); RED BLOOD COUNT 4.81 M/uL (4.2-5.4); WHITE BLOOD COUNT 8.27 K/uL (4.8-10.8)
[2017-06-30 16:30] LABS: MEAN CORPUSCULAR HGB CONC 28.6 g/dl (32-36); PLATELET COUNT 261 K/uL (130-400)
[2017-06-30 16:32] LABS: ANISOCYTOSIS PRESENT; BASO % 0.4 %; BASO ABS # 0.03 K/uL (0-0.2); COMPLETE YES; IG% 0.2 %; LYMPH ABS # 1.74 K/uL (1.2-3.4); NEUT % 68.4 %; PLT ESTIMATE NORMAL; POLYCHROMASIA 1+; TEAR DROP CELLS 1+
[~2017-07-15] VITALS: Ht 165.1 cm; Wt 117.4 kg
[~2017-07-15 06:07] MED LIST changes: +LACTATED RINGER'S 1000ML 1,000 ML IV SCH
[2017-07-15 06:37] VITALS: BP 175/84; PULSE 63; TEMP 36.6; O2SAT 98; Ht 165.1 cm; Wt 117.4 kg
[2017-07-15] MEDS ORDERED: MIDAZOLAM HCL 1 MG/ML 2ML VIAL ONE (06:42)
[2017-07-15] MEDS ORDERED: PROPOFOL IV EMULSION 10 MG/ML 20 ML VIAL IV ONE (06:42)
[2017-07-15] MEDS ORDERED: ONDANSETRON INJ 2 MG/ML 2 ML VIAL ONE (06:42)
[2017-07-15] MEDS ORDERED: DEXAMETHASONE SOD INJ 4 MG/ML VIAL ONE (06:42)
[2017-07-15] MEDS ORDERED: FENTANYL CITRATE INJ 50 MCG/1 ML 2 ML VIAL ONE ×2 (06:42→08:08)
[2017-07-15] MEDS ORDERED: LIDOCAINE HCL 2% 2 ML VIAL (20MG/ML) ONE (06:42)
--- NOTE | 2017-07-15 07:13 | History & Physical Bridge Note ---
H&P Re-Evaluation Bridge Note: I have examined the patient, reviewed the History & Physical and in the interval since the performance of the History & Physical I have noted the following changes of clinical significance: No changes noted
[2017-07-15] MEDS ORDERED: SODIUM CHLORIDE 0.9% 1000ML 1,000 ML IV SCH (07:55)
--- NOTE | 2017-07-15 07:56 | [facility] Post Operative Brief Note ---
Immediate Operative Summary Operative Date Jul 15, 2017. Pre-Operative Diagnosis Endometrial Polyp Post-Operative Diagnosis same as preop Procedure(s) Performed Hysteroscopy, resection of endo polyp with myosure Surgeon Dr. Beck Telephone Operator Surgeon(s) . Estimated Blood Loss 5ml Findings posterior fundal polyp Specimens Polyp Drains None Anesthesia General Complication(s) None Disposition Recovery Room / PACU
--- NOTE | 2017-07-15 07:57 | Discharge Instructions ---
Discharge Instructions Date of Service Jul 15, 2017. Admission Reason for Admission: Endometrial Polyp; Adenomyosis Discharge Discharge Diagnosis / Problem: polyp Discharge Goals Goal(s): Routine recovery after surgery Activity Recommendations Activity Limitations: per Instructions/Follow-up section . Instructions / Follow-Up Instructions / Follow-Up ACTIVITY RECOMMENDATIONS: * Avoid tampons, douching, hot tubs, pools, and intercourse until bleeding has stopped. * May shower as usual. * No strenuous activity for 24-48 hours. After 24-48 hours, you may do anything you feel like doing (driving and sports are okay). SPECIAL CARE INSTRUCTIONS: Special Diet: * Mild nausea may occur in the immediate post-operative period. * Take clear liquids such as tea, cola or bouillon until all nausea has subsided; you may then resume your normal diet. Special Care: * Light bleeding and vaginal spotting can last from a few days to 3-4 weeks. Call your doctor if bleeding becomes heavier than the heaviest part of your period. * Check your temperature twice a day for one week. If it goes above 100.4 degrees Fahrenheit (38.0 Celsius), notify your doctor. * Call your doctor's office for an appointment for 6 weeks after your surgery. FOLLOW-UP VISIT: Call your doctor's office for an appointment for 6 weeks after your surgery. Current Hospital Diet Patient's current hospital diet: Discharge Diet Recommended Diet: Regular Diet Procedures Procedures Performed: Hysteroscopy, resection of endo polyp with myosure Pending Studies Studies pending at discharge: no Laboratory Results Hemoglobin A1c Test 06/06/17 15:28 Range/Units Estimated Average Glucose 174 mg/dl Hemoglobin A1c 7.7 H 4.5-5.6 % Lipid Panel Test 06/06/17 15:28 Range/Units Triglycerides Level 84 0-150 mg/dl Cholesterol Level 151 0-200 mg/dl HDL Cholesterol 43 mg/dl Cholesterol/HDL Ratio 3.5 LDL Cholesterol, Calculated 91 mg/dl Medical Emergencies . Who to Call and When: Medical Emergencies: If at any time you feel your situation is an emergency, please call 911 immediately. . Non-Emergent Contact Non-Emergency issues call your: [employer] . . "Provider Documentation" section prepared by Philip Beck. . VTE Core Measure Inpt VTE Proph given/why not?: Mauricio Aquino, SCD's
[2017-07-15] MEDS ORDERED: KETOROLAC TROMETHAMINE 30 MG/ML VIAL IV. PRN (08:00)
[2017-07-15] MEDS ORDERED: PROMETHAZINE HCL INJ 25 MG in SODIUM CHLORIDE 0.9% 50ML 50 ML IV PRN (08:00)
[2017-07-15] MEDS ORDERED: ONDANSETRON INJ 2 MG/ML 2 ML VIAL IV PRN ×2 (08:00→08:30)
[2017-07-15] MEDS ORDERED: OXYCODONE/ACETAMINOPHEN 5-325 TAB PO PRN ×2 (08:00)
[2017-07-15] MEDS ORDERED: IBUPROFEN 600 MG TAB PO PRN (08:00)
[2017-07-15] MEDS ORDERED: KETOROLAC TROMETHAMINE 30 MG/ML VIAL ONE (08:07)
[2017-07-15] MEDS ORDERED: METOCLOPRAMIDE HCL INJ 5 MG/ML 2 ML VIAL ONE (08:07)
--- NOTE | 2017-07-15 08:09 | OPERATIVE REPORT ---
DATE OF OPERATION: 07/15/2017 PREOPERATIVE DIAGNOSIS: Endometrial polyp. POSTOPERATIVE DIAGNOSIS: Endometrial polyp. PROCEDURE: Hysteroscopy, resection of endometrial polyp with MyoSure. SURGEON: Kiran Packer MD. TEST ADMINISTRATOR: None. ESTIMATED BLOOD LOSS: 5 mL. TOTAL LOSSES OF NORMAL SALINE: 150 mL. FINDINGS: Posterior fundal polyp. SPECIMENS: Polyps. DRAINS: None. ANESTHETIC: General. COMPLICATIONS: None. DISPOSITION: Recovery. DESCRIPTION OF THE PROCEDURE: Sandra was given a general anesthetic, prepped and draped in dorsal lithotomy position in [facility]. Bladder drained with an in and out catheter. Uterus examined and found to be slightly anteverted. Weighted speculum placed in the vagina, single tooth tenaculum in anterior lip of the cervix. Cervix then carefully dilated starting with a #13 dilator and then progressing to a #25 dilator. On inspection with the hysteroscope with normal saline as a base solution using MyoSure scope, I was able to visualize the cavity. Both tubal ostia were visualized. There was no sign of perforation. On the posterior aspect, there was a thickening consistent with a polyp, it appeared benign. Using the MyoSure light we then resected the polyps taking care to always keep the active operating blade in sight when being used. I resected the polyp down to level of the endometrium. At this stage, I felt I had removed all the polyp. The procedure was stopped. Bleeding was minimal. Sponge and instrument counts correct after removal of the instruments from the cervix. The patient sent to recovery room in stable condition. I attest to the content of the Intraoperative Record and any orders documented therein. Any exception s are noted below.
[2017-07-15] MEDS ORDERED: SUCCINYLCHOLINE CHLORIDE 20 MG/ML 10 ML VIAL IV ONE (08:11)
[2017-07-15 08:14] LABS: HEMATOCRIT 23.2 % (37-47); MEAN CELL VOLUME 74.4 fL (80-100); MEAN CORPUSCULAR HEMOGLOBIN 23.1 pg (25-34); RED BLOOD COUNT 3.12 M/uL (4.2-5.4); WHITE BLOOD COUNT 4.66 K/uL (4.8-10.8)
[2017-07-15] MEDS ORDERED: FLUMAZENIL 0.1 MG/1 ML 10 ML VIAL IV PRN (08:30)
[2017-07-15] MEDS ORDERED: FENTANYL CITRATE INJ 50 MCG/1 ML 2 ML VIAL IV PRN (08:30)
[2017-07-15] MEDS ORDERED: ATROPINE SULFATE 0.1 MG/ML 5ML SYR IV PRN (08:30)
[2017-07-15] MEDS ORDERED: LABETALOL HCL IV 5 MG/ML 20ML IV PRN (08:30)
[2017-07-15] MEDS ORDERED: NALOXONE HCL 0.4 MG/1 ML VIAL/CARP IV PRN (08:30)
[2017-07-15] MEDS ORDERED: EpHEDrine SULFATE INJ 50 MG/ML AMP IV PRN (08:30)
[2017-07-15] MEDS ORDERED: PROMETHAZINE HCL INJ 12.5 MG in SODIUM CHLORIDE 0.9% 50ML 50 ML IV PRN (08:30)
[2017-07-15 08:48] LABS: PLATELET COUNT 131 K/uL (130-400)
[2017-07-15 08:49] LABS: ANISOCYTOSIS PRESENT; BASO % 0.4 %; BASO ABS # 0.02 K/uL (0-0.2); COMPLETE YES; EOS % 2.8 %; LYMPH % 28.1 %; LYMPH ABS # 1.31 K/uL (1.2-3.4); MONO % 7.1 %; NEUT % 61.6 %; PLT ESTIMATE NORMAL; TEAR DROP CELLS 1+
--- NOTE | 2017-07-15 08:49 | Anesthesiology Progress Note ---
Anesthesia Post Op Note Date & Time Jul 15, 2017 at 08:49 Vital Signs Pain Intensity: 2 Vital Signs Past 12 Hours Date Time Temp Pulse Resp B/P (MAP) Pulse Ox O2 Delivery O2 Flow Rate FiO2 07/15/17 08:40 36.4 70 18 142/72 94 Room Air 07/15/17 08:30 75 18 130/66 95 Room Air 07/15/17 08:20 72 18 133/71 99 Oxymask 10 07/15/17 08:10 86 18 136/75 99 Oxymask 10 07/15/17 08:01 36.8 89 18 151/67 96 Oxymask 10 07/15/17 06:37 36.6 63 18 175/84 (114) 98 Room Air Notes Mental Status: alert / awake / arousable, participated in evaluation Pt Amnestic to Procedure: Yes Nausea / Vomiting: adequately controlled Pain: adequately controlled Airway Patency, RR, SpO2: stable & adequate BP & HR: stable & adequate Hydration State: stable & adequate Anesthetic Complications: no major complications apparent
[2017-07-15 08:55] VITALS: BP 139/63; PULSE 69; TEMP 36.7; O2SAT 93
[2017-07-15 09:25] VITALS: BP 140/66; PULSE 64; O2SAT 93
[2017-07-15 09:55] VITALS: BP 156/63; PULSE 65; TEMP 36.5; O2SAT 94
== END 2017-07-15 09:55 | disposition home or self-care (01) ==
LOC: C.ACU 06:07
PROVIDERS: ATTEND Obstetrics & Gynecology
DX: N84.0 Polyp of corpus uteri (principal); N92.0 Excessive and frequent menstruation with regular cycle; N80.0 Endometriosis of uterus; R10.2 Pelvic and perineal pain; E11.9 Type 2 diabetes mellitus without complications; K21.9 Gastro-esophageal reflux disease without esophagitis; Z88.0 Allergy status to penicillin; Z98.890 Other specified postprocedural states; E78.5 Hyperlipidemia, unspecified; Z68.41 Body mass index [BMI] 40.0-44.9, adult; E66.01 Morbid (severe) obesity due to excess calories

== ENCOUNTER → 2017-11-16 | Outpatient (CLI) | payer OTHER ==
[~2017-11-16] MED LIST changes: +AMLO-110 PO; -CINN1CAP2 PO; -LACTATED RINGER'S 1000ML 1,000 ML IV SCH
[2017-11-16 14:39] LABS: BASO % 0.4 %; BASO ABS # 0.03 K/uL (0-0.2); EOS % 5.8 %; EOS ABS # 0.41 K/uL (0-0.5); HEMATOCRIT 35.6 % (37-47); HEMOGLOBIN 11.6 g/dL (12.0-16.0); IG# 0.01 K/uL (0.00-0.02); LYMPH ABS # 1.71 K/uL (1.2-3.4); MEAN CELL VOLUME 80.9 fL (80-100); MEAN CORPUSCULAR HEMOGLOBIN 26.4 pg (25-34); MEAN CORPUSCULAR HGB CONC 32.6 g/dl (32-36); MEAN PLATELET VOLUME 11.5 fL (7.4-10.4); MONO % 6.9 %; MONO ABS # 0.49 K/uL (0.11-0.59); NEUT % 62.8 %; NEUT ABS # 4.48 K/uL (1.4-6.5); PLATELET COUNT 202 K/uL (130-400); RED CELL DISTRIBUTION WIDTH CV 15.7 % (11.5-14.5); WHITE BLOOD COUNT 7.13 K/uL (4.8-10.8)
[2017-11-16 14:57] LABS: TRANSFERRIN 304 mg/dl (200-360)
== END | disposition home or self-care (01) ==
LOC: C.LAB1850 12:35
PROVIDERS: ATTEND Internal Medicine
DX: D62 Acute posthemorrhagic anemia (principal)

== ENCOUNTER → 2017-12-13 | Day surgery (SDC) | payer OTHER ==
[2017-11-23 11:20] VITALS: Ht 165.1 cm; Wt 117.3 kg
[~2017-12-13] VITALS: Ht 165.1 cm; Wt 117.3 kg
[~2017-12-13] MED LIST changes: +LABETALOL HCL IV 5 MG/ML 20ML IV ONE; +LIDOCAINE HCL 2% 2 ML VIAL (20MG/ML) ONE; +MIDAZOLAM HCL 1 MG/ML 2ML VIAL ONE; +ONDANSETRON INJ 2 MG/ML 2 ML VIAL ONE; +PROPOFOL IV EMULSION 10 MG/ML 20 ML VIAL IV ONE; +SODIUM CHLORIDE 0.9% 500ML 500 ML IV ONE
--- NOTE | 2017-12-13 10:27 | Endo History and Physical ---
History & Physical Date of Service: Dec 13, 2017. Chief Complaint: SCREENING FOR COLON CANCER, HX OF POLYPS Referring Physician: DR. FARRIS History of Present Illness 47 yo CF who presents for colonoscopy secondary to history of colon polyps. Past Surgical History Hx Cardiac Surgery: No Hx Internal Defibrillator: No Hx Pacemaker: No Hx Abdominal Surgery: Yes (, ALYSSA, LAPAROSCOPY, D&C/HYSTEROSCOPY) Hx of Implantable Prosthesis: No Hx Post-Op Nausea and Vomiting: Yes Hx Cancer Surgery: No Hx Thoracic Surgery: No Hx Orthopedic: No Hx Urinary Tract Surgery: No Family History Colon CA Social History Smoking Status: Never Smoker Hx Substance Use: No Hx Alcohol Use: No Allergies Coded Allergies: Penicillins (Verified Allergy, Mild, Yeast infection, 12/13/17) Cinnamon (Verified Allergy, Unknown, SCRATCHY/FEELS LIKE THROAT IS FULL, ) PT REPORTS IS OKAY TO EAT CINNAMON REACTION IS WITH SMELLING IT (WITH CANDLES) Current Medications Reported Home Medications Medications Dose Route/Sig Max Daily Dose Days Date Category Norvasc (Amlodipine Besylate) 5 Mg Tab 5 Mg PO DAILY 11/23/17 Reported Infed (Iron Dextran) Unknown Strength Inj 1 Dose INJ DIRECTED 02/23/17 Reported Protonix (Pantoprazole Sodium) 40 Mg Tab 40 Mg PO QAM 02/09/17 Reported Glucophage (Metformin Hcl) 1,000 Mg Tab 1,000 Mg PO BID 10/22/12 Reported [place]-3 (Fish Oil) 1 Ea Cap 1,200 Mg PO QAM 06/17/10 Reported Vital Signs Weight (Kilograms): 117.27 Height (Feet): 5 Height (Inches): 5 Date Time Temp Pulse Resp B/P (MAP) Pulse Ox O2 Delivery O2 Flow Rate FiO2 12/13/17 09:49 101 164/102 (122) 12/13/17 09:23 37.2 102 18 162/102 (122) 97 Room Air Physical Exam General Appearance: WD/WN, no apparent distress Respiratory/Chest: Auscultation: breath sounds normal Cardiovascular: Heart Auscultation: RRR Abdomen: Bowel Sounds: normal Inspection & Palpation: soft, non-distended, no tenderness, guarding & rebound Assessment and Plan Assessment: 47 yo CF who presents for colonoscopy secondary to history of colon polyps. Plan: Proceed with colonoscopy.
--- NOTE | 2017-12-13 11:07 | Discharge Instructions ---
Endoscopy Patient Instructions Date / Procedure(s) Performed Dec 13, 2017. Colonoscopy Allergy Information Coded Allergies: Penicillins (Verified Allergy, Mild, Yeast infection, 12/13/17) Cinnamon (Verified Allergy, Unknown, SCRATCHY/FEELS LIKE THROAT IS FULL, ) PT REPORTS IS OKAY TO EAT CINNAMON REACTION IS WITH SMELLING IT (WITH CANDLES) Discharge Date / Findings Dec 13, 2017. Internal hemorrhoids Medication Instructions Stopped Medication(s): METFORMIN 12/12/17 FISH OIL 12/10/17 OK to resume all medications today as prescribed Reported Home Medications Medications Dose Route/Sig Max Daily Dose Days Date Category Norvasc (Amlodipine Besylate) 5 Mg Tab 5 Mg PO DAILY 11/23/17 Reported Infed (Iron Dextran) Unknown Strength Inj 1 Dose INJ DIRECTED 02/23/17 Reported Protonix (Pantoprazole Sodium) 40 Mg Tab 40 Mg PO QAM 02/09/17 Reported Glucophage (Metformin Hcl) 1,000 Mg Tab 1,000 Mg PO BID 10/22/12 Reported [place]-3 (Fish Oil) 1 Ea Cap 1,200 Mg PO QAM 06/17/10 Reported Provider Instructions Activity Restrictions - No exercising or heavy lifting for 24 hours. - Do not drink alcohol the day of the procedure. - Do not drive a car or operate machinery until the day after the procedure. - Do not make any important decisions or sign important papers in 24 hours after the procedure. Following Day: - Return to full activity which may include returning to work/school. Diet Start your diet with liquids and light foods (jello, soup, juice, toast). Then eat your usual diet if not nauseated. Treatment For Common After Affects For mild abdominal pain, bloating, or excessive gas: - Rest - Eat lightly - Lie on right side Follow-Up Information Follow-up with DR. FARRIS as scheduled Anesthesia Information What You Should Know You have had a procedure that required some medicine to reduce anxiety and discomfort. This treatment is called moderate sedation. After receiving the treatment, you may be sleepy, but you will be able to breathe on your own. The effects of the treatment may last for several hours. Follow these instructions along with Activity/Diet recommendations noted above: * Do NOT do anything where dizziness or clumsiness would be dangerous. * Rest quietly at home today, then you can be up and about tomorrow. * Have a responsible person stay with you the rest of today. * You may have had an I.V. today. If so, you may take the dressing off later today. Recommendations Call your doctor if: * Trouble breathing * Continuous vomiting for more than 24 hours * Temperature above 101 degrees * Severe abdominal pain or bloating * Pain not relieved by pain medicine ordered * There is increased drainage or redness from any incision * A large amount of rectal bleeding greater than 2-3 tablespoons. (If you had a polyp/s removed or have hemorrhoids, a small amount of blood - from the rectum is to be expected.) * You have any unanswered questions or concerns. IN THE EVENT OF A SERIOUS EMERGENCY, GO TO THE NEAREST EMERGENCY ROOM Your discharge instructions were prepared by provider Patrick Humphries. Patient Instructions Signature Page Sandra Lomeli Patient (or Guardian) Signature/Date: I have read and understand the instructions given to me by my caregivers. Caregiver/RN/Doctor Signature/Date: The above-named patient and/or guardian has received patient instructions on this date. + Original Patient Signature Page (only) stays with chart. Please make copy for patient.
--- NOTE | 2017-12-13 11:07 | GI REPORT ---
Procedure Date: 12/13/2017 10:10 AM THIS REPORT HAS BEEN AMENDED Addendum Number: 1 Addendum Date: 12/13/2017 1:54:11 PM No specimens were collected during this exam, and therefore, no pathology is pending. Repeat colonoscopy in 10 years for surveillance purposes. Procedure: Colonoscopy Indications: Screening for colorectal malignant neoplasm Medicines: Monitored Anesthesia Care Complications: No immediate complications. Estimated Blood Loss: Estimated blood loss: none. Procedure: Pre-Anesthesia Assessment: - Prior to the procedure, a History and Physical was performed, and patient medications and allergies were reviewed. The patient's tolerance of previous anesthesia was also reviewed. The risks and benefits of the procedure and the sedation options and risks were discussed with the patient. All questions were answered, and informed consent was obtained. Prior Anticoagulants: The patient has taken no previous anticoagulant or antiplatelet agents. ASA Grade Assessment: III - A patient with severe systemic disease. After reviewing the risks and benefits, the patient was deemed in satisfactory condition to undergo the procedure. After I obtained informed consent, the scope was passed under direct vision. Throughout the procedure, the patient's blood pressure, pulse, and oxygen saturations were monitored continuously. The scope was introduced through the anus and advanced to the cecum, identified by appendiceal orifice and ileocecal valve. The colonoscopy was performed without difficulty. The patient tolerated the procedure well. The quality of the bowel preparation was good. The ileocecal valve, appendiceal orifice, and rectum were photographed. Findings: The perianal and digital rectal examinations were normal. Non-bleeding internal hemorrhoids were found during retroflexion. The hemorrhoids were small. Impression: - Non-bleeding internal hemorrhoids. - No specimens collected. Recommendation: - Resume previous diet. - Continue present medications. - Repeat colonoscopy for surveillance based on pathology results. - Return to primary care physician as previously scheduled. Patrick Humphries, DO 12/13/2017 11:06:14 AM This report has been signed electronically. Note Initiated On: 12/13/2017 10:10 AM I attest to the content of the Intraoperative Record and orders documented therein, exceptions below Patrick Humphries, DO 12/13/2017 1:55:17 PM This report has been signed electronically.
[2017-12-13 11:40] VITALS: BP 142/80; PULSE 94; O2SAT 94
--- NOTE | 2017-12-13 11:45 | Anesthesiology Progress Note ---
Anesthesia Post Op Note Date & Time Dec 13, 2017 at 11:45 Vital Signs Pain Intensity: 0 Vital Signs Past 12 Hours Date Time Temp Pulse Resp B/P (MAP) Pulse Ox O2 Delivery O2 Flow Rate FiO2 12/13/17 11:25 97 18 132/85 (101) 96 Room Air 12/13/17 11:10 95 18 136/77 (96) 96 Room Air 12/13/17 09:49 101 164/102 (122) 12/13/17 09:23 37.2 102 18 162/102 (122) 97 Room Air Notes Mental Status: alert / awake / arousable, participated in evaluation Pt Amnestic to Procedure: Yes Nausea / Vomiting: adequately controlled Pain: adequately controlled Airway Patency, RR, SpO2: stable & adequate BP & HR: stable & adequate Hydration State: stable & adequate Anesthetic Complications: no major complications apparent
== END | disposition home or self-care (01) ==
LOC: C.GI 08:56
PROVIDERS: ATTEND Internal Medicine
DX: Z12.11 Encounter for screening for malignant neoplasm of colon (principal); K64.8 Other hemorrhoids; Z86.010 Personal history of colon polyps; E11.9 Type 2 diabetes mellitus without complications; Z88.0 Allergy status to penicillin; Z91.018 Allergy to other foods; Z90.89 Acquired absence of other organs; Z90.49 Acquired absence of other specified parts of digestive tract; Z80.0 Family history of malignant neoplasm of digestive organs

== ENCOUNTER → 2017-12-15 | Outpatient (CLI) | payer OTHER ==
[~2017-12-15] MED LIST changes: -LABETALOL HCL IV 5 MG/ML 20ML IV ONE; -LIDOCAINE HCL 2% 2 ML VIAL (20MG/ML) ONE; -MIDAZOLAM HCL 1 MG/ML 2ML VIAL ONE; -ONDANSETRON INJ 2 MG/ML 2 ML VIAL ONE; -PROPOFOL IV EMULSION 10 MG/ML 20 ML VIAL IV ONE; -SODIUM CHLORIDE 0.9% 500ML 500 ML IV ONE
[2017-12-15 16:36] LABS: BASO % 0.2 %; BASO ABS # 0.01 K/uL (0-0.2); EOS % 4.2 %; HEMATOCRIT 40.1 % (37-47); HEMOGLOBIN 12.8 g/dL (12.0-16.0); IG# 0.02 K/uL (0.00-0.02); LYMPH % 15.7 %; LYMPH ABS # 0.74 K/uL (1.2-3.4); MEAN CELL VOLUME 81.7 fL (80-100); MEAN CORPUSCULAR HEMOGLOBIN 26.1 pg (25-34); MEAN CORPUSCULAR HGB CONC 31.9 g/dl (32-36); MEAN PLATELET VOLUME 10.9 fL (7.4-10.4); MONO % 11.9 %; MONO ABS # 0.56 K/uL (0.11-0.59); NEUT % 67.6 %; NEUT ABS # 3.19 K/uL (1.4-6.5); PLATELET COUNT 180 K/uL (130-400); RED CELL DISTRIBUTION WIDTH CV 14.8 % (11.5-14.5); RED CELL DISTRIBUTION WIDTH SD 44.5 fL (36.4-46.3); WHITE BLOOD COUNT 4.72 K/uL (4.8-10.8)
== END | disposition home or self-care (01) ==
LOC: C.LAB1850 15:31
PROVIDERS: ATTEND Physician Assistant
DX: N92.1 Excessive and frequent menstruation with irregular cycle (principal)

== ENCOUNTER 2018-01-07 20:11 | Emergency (ER) | payer OTHER ==
[~2018-01-07] VITALS: Ht 165.1 cm; Wt 121.9 kg
[2018-01-07 20:12] VITALS: TEMP 36.8; Ht 165.1 cm; Wt 121.9 kg
[2018-01-07] MEDS ORDERED: ACETAMINOPHEN 500 MG TAB PO STA (20:49)
[2018-01-07] MEDS ORDERED: KETOROLAC TROMETHAMINE 30 MG/ML VIAL IV STA (20:49)
[2018-01-07] MEDS ORDERED: ONDANSETRON INJ 2 MG/ML 2 ML VIAL IV STA (20:49)
[2018-01-07 21:03] VITALS: O2SAT 95
[2018-01-07 21:13] LABS: BASO % 0.6 %; BASO ABS # 0.04 K/uL (0-0.2); EOS % 5.6 %; EOS ABS # 0.39 K/uL (0-0.5); HEMATOCRIT 35.7 % (37-47); HEMOGLOBIN 11.5 g/dL (12.0-16.0); IG# 0.02 K/uL (0.00-0.02); LYMPH % 27.8 %; LYMPH ABS # 1.94 K/uL (1.2-3.4); MEAN CELL VOLUME 80.2 fL (80-100); MEAN CORPUSCULAR HEMOGLOBIN 25.8 pg (25-34); MEAN CORPUSCULAR HGB CONC 32.2 g/dl (32-36); MEAN PLATELET VOLUME 10.7 fL (7.4-10.4); MONO % 7.6 %; MONO ABS # 0.53 K/uL (0.11-0.59); NEUT % 58.1 %; NEUT ABS # 4.07 K/uL (1.4-6.5); PLATELET COUNT 211 K/uL (130-400); RED CELL DISTRIBUTION WIDTH CV 14.1 % (11.5-14.5); RED CELL DISTRIBUTION WIDTH SD 41.8 fL (36.4-46.3); WHITE BLOOD COUNT 6.99 K/uL (4.8-10.8)
[2018-01-07 21:17] LABS: PTT PATIENT 22.7 SECONDS (21.0-31.0)
--- NOTE | 2018-01-07 21:17 | EMERGENCY ROOM VISIT NOTE ---
History Report prepared by Boris: Gudelia Szymanski Under the Supervision of: Dr. Nba Scott M.D. First contact with patient: 20:29 Chief Complaint: CARDIAC ASSESSMENT Stated Complaint: CHEST PAIN, HIGH BP, EDEMA Nursing Triage Summary: patient complains of HTN, chest pain and swelling to left calf. Symptoms started yesterday. Denies shortness of breath History of Present Illness The patient is a 47 year old female with a past medical history of diabetes, diverticulosis, GERD, DVT, hypertension, and anemia who presents to the ED with a cc of worsening chest pain starting yesterday. The patient describes it as an achy pain. She notes that the pain is worse when she breathes. Positive leg swelling, headache, and high blood pressure. She notes that her left leg is more swollen than her right. She states that this happens sometimes, but not to this extent. The patient notes that her blood pressure goes up when she is under stress sometimes. Negative taking anything for pain, diaphoresis, nausea, vomiting, cough, fevers, chills, use of blood thinners, increased stress, and recent long travel. Source of History: patient Onset: yesterday Position: chest Quality: ache Timing: worsening Modifying Factors (Worsening): breathing Associated Symptoms: + headache, No fevers, No chills, No diaphoresis, No cough, No nausea, No vomiting Note: The patient complains of leg swelling and high blood pressure. Review of Systems See HPI for pertinent positives and negatives. A total of ten systems were reviewed and were otherwise negative. Past Medical & Surgical Medical Problems: (1) Chest pain (2) Cholecystectomy (3) CHRONIC LIVER DIS NEC (4) Deliveries by (5) DIAB CRISTIAN WO COMPL, TYPE II OR UNSPEC TYPE, NOT UNCNTRLD (6) DIVERTICULOSIS COLON (W/O MENT OF HEMORRHAGE) (7) ESOPHAGEAL REFLUX (8) HX-VENOUS THROMBOSIS&EMBOLISM (9) HYPERTENSION NOS (10) IRON DEFIC ANEMIA NOS (11) Microcytic anemia (12) POLYCYSTIC OVARIES Family History Cancer Diabetes mellitus Heart disease Hypertension Social History Smoking Status: Never Smoker Alcohol Use: none Marital Status: Housing Status: lives with family Occupation Status: employed Current/Historical Medications Scheduled Amlodipine (Norvasc), 5 MG PO DAILY Fish Oil (Haysi-3), 1,200 MG PO QAM Iron Dextran (Infed), 1 DOSE INJ DIRECTED Lisinopril (Zestril), 5 MG PO QD Metformin Hcl (Glucophage), 1,000 MG PO BID Pantoprazole (Protonix), 40 MG PO QAM Allergies Coded Allergies: Penicillins (Verified Allergy, Mild, Yeast infection, 12/13/17) Cinnamon (Verified Allergy, Unknown, SCRATCHY/FEELS LIKE THROAT IS FULL, ) PT REPORTS IS OKAY TO EAT CINNAMON REACTION IS WITH SMELLING IT (WITH CANDLES) Physical Exam Vital Signs Date Time Temp Pulse Resp B/P (MAP) Pulse Ox O2 Delivery O2 Flow Rate FiO2 01/07/18 23:09 72 21 152/81 97 01/07/18 21:53 77 20 163/89 97 Room Air 01/07/18 21:03 95 Room Air 01/07/18 20:31 95 Room Air 01/07/18 20:25 94 01/07/18 20:12 36.8 86 20 207/110 97 Room Air Physical Exam GENERAL: Awake, alert, well-appearing, NAD HENT: Normocephalic, atraumatic. EYES: Normal conjunctiva. Sclera non-icteric. NECK: Supple. No nuchal rigidity. FROM. RESPIRATORY: CTAB, no rhonchi, wheezing, crackles CARDIAC: RRR, no MRG ABDOMEN: Soft, NTND, BS+, negative Homans sign. MSK: Reproducible sternal pain, some trace left LE swelling greater than right. NEURO: GCS 15, CN 2-12 intact, moves all 4s on command SKIN: No rash or jaundice noted. Medical Decision & Procedures ER Provider Diagnostic Interpretation: Radiology results as stated below per my review and radiologist interpretation: CHEST ONE VIEW PORTABLE HISTORY: Atypical CHEST PAIN COMPARISON: Chest 02/23/2017. FINDINGS: The heart remains enlarged. There are low lung volumes. The lungs are clear. No pleural effusions. No pneumothorax. IMPRESSION: No significant change compared to the prior study. No acute process. Electronically signed by: Jung Toney M.D. 01/07/2018 10:35 PM Dictated Date/Time: 01/07/2018 10:34 PM LEFT LOWER EXTREMITY VENOUS DOPPLER HISTORY: Left leg swelling, prior h/o of DVT COMPARISON STUDY: None. FINDINGS: There is normal compressibility, flow, and augmentation within the left lower extremity deep venous system. IMPRESSION: No DVT within the left lower extremity. Electronically signed by: Jung Toney M.D. 01/07/2018 10:37 PM Dictated Date/Time: 01/07/2018 10:36 PM Laboratory Results 01/07/18 20:27 Red Blood Count 4.45, Mean Corpuscular Volume 80.2, Mean Corpuscular Hemoglobin 25.8, Mean Corpuscular Hemoglobin Concent 32.2, Mean Platelet Volume 10.7, Neutrophils (%) (Auto) 58.1, Lymphocytes (%) (Auto) 27.8, Monocytes (%) (Auto) 7.6, Eosinophils (%) (Auto) 5.6, Basophils (%) (Auto) 0.6, Neutrophils # (Auto) 4.07, Lymphocytes # (Auto) 1.94, Monocytes # (Auto) 0.53, Eosinophils # (Auto) 0.39, Basophils # (Auto) 0.04 01/07/18 20:27 Test 01/07/18 20:27 White Blood Count 6.99 K/uL (4.8-10.8) Red Blood Count 4.45 M/uL (4.2-5.4) Hemoglobin 11.5 g/dL (12.0-16.0) Hematocrit 35.7 % (37-47) Mean Corpuscular Volume 80.2 fL (80-100) Mean Corpuscular Hemoglobin 25.8 pg (25-34) Mean Corpuscular Hemoglobin Concent 32.2 g/dl (32-36) Platelet Count 211 K/uL (130-400) Mean Platelet Volume 10.7 fL (7.4-10.4) Neutrophils (%) (Auto) 58.1 % Lymphocytes (%) (Auto) 27.8 % Monocytes (%) (Auto) 7.6 % Eosinophils (%) (Auto) 5.6 % Basophils (%) (Auto) 0.6 % Neutrophils # (Auto) 4.07 K/uL (1.4-6.5) Lymphocytes # (Auto) 1.94 K/uL (1.2-3.4) Monocytes # (Auto) 0.53 K/uL (0.11-0.59) Eosinophils # (Auto) 0.39 K/uL (0-0.5) Basophils # (Auto) 0.04 K/uL (0-0.2) RDW Standard Deviation 41.8 fL (36.4-46.3) RDW Coefficient of Variation 14.1 % (11.5-14.5) Immature Granulocyte % (Auto) 0.3 % Immature Granulocyte # (Auto) 0.02 K/uL (0.00-0.02) Prothrombin Time 10.2 SECONDS (9.0-12.0) Prothromb Time International Ratio 1.0 (0.9-1.1) Activated Partial Thromboplast Time 22.7 SECONDS (21.0-31.0) Partial Thromboplastin Ratio 0.9 Anion Gap 6.0 mmol/L (3-11) Est Creatinine Clear Calc Drug Dose 100.1 ml/min Estimated GFR () 86.5 Estimated GFR (Non- 74.7 BUN/Creatinine Ratio 13.7 (10-20) Calcium Level 9.2 mg/dl (8.5-10.1) Total Bilirubin 0.3 mg/dl (0.2-1) Direct Bilirubin < 0.1 mg/dl (0-0.2) Aspartate Amino Transf (AST/SGOT) 34 U/L (15-37) Alanine Aminotransferase (ALT/SGPT) 57 U/L (12-78) Alkaline Phosphatase 76 U/L (45-117) Troponin I < 0.015 ng/ml (0-0.045) Pro-B-Type Natriuretic Peptide 63 pg/ml (0-450) Total Protein 7.6 gm/dl (6.4-8.2) Albumin 3.5 gm/dl (3.4-5.0) Lipase 170 U/L (73-393) Laboratory results reviewed by me Medications Administered Medications (Trade) Dose Ordered Sig/Soledad Route Start Time Stop Time Status Last Admin Dose Admin Ondansetron HCl (Zofran Inj) 4 mg NOW STAT IV 01/07/18 20:49 01/07/18 20:51 DC 01/07/18 21:08 4 MG Acetaminophen (Tylenol Tab) 1,000 mg NOW STAT PO 01/07/18 20:49 01/07/18 20:51 DC 01/07/18 21:08 1,000 MG Ketorolac Tromethamine (Toradol Inj) 30 mg NOW STAT IV 01/07/18 20:49 01/07/18 20:51 DC 01/07/18 21:08 30 MG ECG Per My Interpretation Indication: chest pain Rate (beats per minute): 86 Rhythm: normal sinus Findings: T-wave inversion (lead 3), other (normal intervals, normal axis, no other STS changes or TWI ) ED Course 2040: The patient was evaluated in room C6. A complete history and physical exam was performed. 2253: I reevaluated the patient and she feels better. Discussed results and discharge instructions: She verbalized understanding and agreement. The patient is ready for discharge. Medical Decision The patient is a 47 year old female with a past medical history of diabetes, diverticulosis, GERD, DVT, hypertension, and anemia who presents to the ED with a cc of worsening chest pain starting yesterday. Nursing notes reviewed. Ancillary studies and prior records reviewed. Differential diagnosis: Etiologies such as cardiac ischemia, aortic dissection, pulmonary embolism, pneumonia, pneumothorax, musculoskeletal, infections, pericarditis, myocarditis , esophageal rupture, gastrointestinal, as well as others were entertained. Patient was seen and evaluated the bedside. Patient did complain of some mild chest discomfort that was reproducible. Patient denied any exertional symptoms , nausea, vomiting, diaphoresis. Patient did complain of some left lower extremity swelling and some mild discomfort. She may have some trace swelling although it is difficult to ascertain at the bedside given that both her legs are very large. Patient does not complain of any orthopnea. The patient had blood work, EKG, troponin, chest x-ray, BNP, and ultrasound left lower extremity. Left lower extremity ultrasound was negative for DVT. The patient's chest x-ray was clear. Patient's EKG did not show ischemic change and the patient does not have an elevated troponin. Patient's BNP was within normal limits. Patient's other blood work is fairly unremarkable. The patient's blood pressure did improve just with some mild pain control. Upon reassessment the patient was feeling improved. Patient was told that we will start her on a low-dose lisinopril. Patient's kidney function is normal as well as her potassium. Patient heart score is not greater than 3 I believe given the patient's history and physical exam less likely ACS. The patient would perk and given her prior history of DVT however the patient's well's score is 1.5 and with a negative ultrasound study I believe less likely DVT. Patient was deemed suitable for outpatient follow-up and treatment at this time. Patient was given strict follow-up, discharge, and return precautions. All questions were answered. Patient was deemed suitable for outpatient follow- up at this time. Patient agreed with the plan of care and was safely discharged home. Medication Reconcilliation Current Medication List: was personally reviewed by me Blood Pressure Screening Patient's blood pressure: Elevated blood pressure Blood pressure disposition: Referred to PCP Impression Primary Impression: Chest pain Additional Impression: Hypertension Scribe Attestation The scribe's documentation has been prepared under my direction and personally reviewed by me in its entirety. I confirm that the note above accurately reflects all work, treatment, procedures, and medical decision making performed by me. Departure Information Dispostion Home / Self-Care Prescriptions Lisinopril (Zestril) 5 Mg Tab 5 MG PO QD for 30 Days, #30 TAB Prov: Nba Scott M.D. 01/07/18 Referrals Luis F Sanders M.D. (PCP) Forms IMPORTANT VISIT INFORMATION Patient Instructions Chest Pain - [facility], Hypertension Control, [facility] Additional Instructions Please return to the emergency department if you have worsening or recurrent symptoms not amenable to at-home treatment. Please call for a follow-up appointment with her primary care physician. Please take your medications as prescribed. If you have other concerns and/or complaints please feel free to also call your primary care physician's office or return the ED for further evaluation, management, and treatment. You were found to have an elevated blood pressure today (>120 sytolic or >90 diastolic). Per medicare guidelines, you need to follow up with this blood pressure screening with your Primary Care Physician (PCP). For a new PCP call [phone]. Take your medications as prescribed. You have been examined and treated today on an emergency basis only. This is not a substitute for, or an effort to provide, complete comprehensive medical care. It is impossible to recognize and treat all injuries or illnesses in a single emergency department visit. It is therefore important that you follow up closely with [facility], your PCP, and/or your specialist(s). Call as soon as possible for an appointment. Thank you for your time and consideration. I look forward to speaking with you again soon. Please don't hesitate to call us if you have any questions. Problem Qualifiers Primary Impression: Chest pain Chest pain type: unspecified Qualified Codes: R07.9 - Chest pain, unspecified Additional Impression: Hypertension Hypertension type: unspecified Qualified Codes: I10 - Essential (primary) hypertension
[2018-01-07 22:21] LABS: ALBUMIN 3.5 gm/dl (3.4-5.0); ALKALINE PHOSPHATASE 76 U/L (45-117); AST/SGOT 34 U/L (15-37); BLOOD UREA NITROGEN 13 mg/dl (7-18); CALCIUM 9.2 mg/dl (8.5-10.1); CARBON DIOXIDE 23 mmol/L (21-32); CREATININE 0.92 mg/dl (0.60-1.20); GLUCOSE 199 mg/dl (70-99); LIPASE 170 U/L (73-393); POTASSIUM 3.7 mmol/L (3.5-5.1); SODIUM 136 mmol/L (136-145); TOTAL PROTEIN 7.6 gm/dl (6.4-8.2)
[2018-01-07 22:22] LABS: ALT/SGPT 57 U/L (12-78)
--- NOTE | 2018-01-07 22:36 | DIAGNOSTIC IMAGING REPORT ---
CHEST ONE VIEW PORTABLE HISTORY: Atypical CHEST PAIN COMPARISON: Chest 02/23/2017. FINDINGS: The heart remains enlarged. There are low lung volumes. The lungs are clear. No pleural effusions. No pneumothorax. IMPRESSION: No significant change compared to the prior study. No acute process. Electronically signed by: Jung Toney M.D. 01/07/2018 10:35 PM Dictated Date/Time: 01/07/2018 10:34 PM
--- NOTE | 2018-01-07 22:38 | DIAGNOSTIC IMAGING REPORT ---
LEFT LOWER EXTREMITY VENOUS DOPPLER HISTORY: Left leg swelling, prior h/o of DVT COMPARISON STUDY: None. FINDINGS: There is normal compressibility, flow, and augmentation within the left lower extremity deep venous system. IMPRESSION: No DVT within the left lower extremity. Electronically signed by: Jung Toney M.D. 01/07/2018 10:37 PM Dictated Date/Time: 01/07/2018 10:36 PM
[2018-01-07] MEDS ORDERED: LISI-729 PO (23:00)
[2018-01-07 23:09] VITALS: BP 152/81; PULSE 72; O2SAT 97
== END 2018-01-07 23:10 | disposition home or self-care (01) ==
LOC: C.EDB 20:12 → C.EDC 23:10
DX: R07.9 Chest pain, unspecified (principal); I10 Essential (primary) hypertension; E11.9 Type 2 diabetes mellitus without complications; K57.30 Diverticulosis of large intestine without perforation or abscess without bleeding; K21.9 Gastro-esophageal reflux disease without esophagitis; K76.9 Liver disease, unspecified; D50.9 Iron deficiency anemia, unspecified; E28.2 Polycystic ovarian syndrome; Z86.718 Personal history of other venous thrombosis and embolism; Z82.49 Family history of ischemic heart disease and other diseases of the circulatory system; Z79.84 Long term (current) use of oral hypoglycemic drugs; Z79.899 Other long term (current) drug therapy; Z88.0 Allergy status to penicillin; Z91.018 Allergy to other foods

== ENCOUNTER → 2018-02-13 | Outpatient (CLI) | payer OTHER ==
[2018-02-13 17:39] LABS: HEMATOCRIT 34.2 % (37-47); HEMOGLOBIN 10.9 g/dL (12.0-16.0); MEAN CELL VOLUME 78.3 fL (80-100); MEAN CORPUSCULAR HEMOGLOBIN 24.9 pg (25-34); MEAN CORPUSCULAR HGB CONC 31.9 g/dl (32-36); MEAN PLATELET VOLUME 10.2 fL (7.4-10.4); PLATELET COUNT 239 K/uL (130-400); RED CELL DISTRIBUTION WIDTH SD 39.9 fL (36.4-46.3); WHITE BLOOD COUNT 8.47 K/uL (4.8-10.8)
[2018-02-13 18:01] LABS: BLOOD UREA NITROGEN 8 mg/dl (7-18); CALCIUM 8.8 mg/dl (8.5-10.1); CARBON DIOXIDE 27 mmol/L (21-32); CHOLESTEROL 184 mg/dl (0-200); CREATININE 0.71 mg/dl (0.60-1.20); GLUCOSE 158 mg/dl (70-99); LDL CHOLESTEROL CALCULATED 125 mg/dl; POTASSIUM 3.8 mmol/L (3.5-5.1); SODIUM 136 mmol/L (136-145)
--- NOTE | 2018-02-13 19:01 | DIAGNOSTIC IMAGING REPORT ---
L-SPINE MIN 4 VIEWS ROUTINE HISTORY: 47 years-old Female M54.5 Chronic low back [id number] COMPARISON: CT abdomen and pelvis 04/28/2016 TECHNIQUE: 5 views of the lumbar spine FINDINGS: 5 nonrib-bearing lumbar type vertebral segments. No acute fracture or subluxation. Mild intervertebral disc space narrowing with endplate spurring at T10-T11 and T11-T12. No significant changes of the lumbar spine. Mild facet arthrosis at L5-S1. No spondylolysis or spondylolisthesis. Cholecystectomy clips are noted. IMPRESSION: 1. No acute fracture or subluxation. 2. No significant degenerative changes about the lumbar spine. The above report was generated using voice recognition software. It may contain grammatical, syntax or spelling errors. Electronically signed by: Deshaun Hameed M.D. 02/13/2018 6:59 PM Dictated Date/Time: 02/13/2018 6:58 PM
[2018-02-14 06:20] LABS: HEMOGLOBIN A1C 8.3 % (4.5-5.6)
== END | disposition home or self-care (01) ==
LOC: C.LAB1850 16:12
PROVIDERS: ATTEND Internal Medicine
DX: M54.5 Low back pain (principal); E11.9 Type 2 diabetes mellitus without complications; E55.9 Vitamin D deficiency, unspecified; D50.9 Iron deficiency anemia, unspecified